=== PATIENT | male | born 1945 | race African-American/Black ===

== ENCOUNTER 2021-06-09 08:37 | Inpatient (IN) | payer OTHER, SELFPAY ==
[2021-06-09] VITALS (24 sets, daily range): BP systolic 124–165; BP diastolic 50–102; PULSE 70–108; RESP 13–26; TEMP 36.2–37.1; O2SAT 94–100; BMI 19.2
--- NOTE | ~2021-06-09 | CT_ITS ---
EXAMINATION: CTA chest PE protocol DATE: 06/09/2021 12:06 INDICATION: Hypoxia TECHNIQUE: Computed tomography angiography (CTA) of the chest was performed with 100 mL Omnipaque-350 intravenous contrast timed to evaluate the pulmonary arteries. Coronal maximum intensity projection 3D-reconstructions were created by the technologist. Automated exposure control and iterative reconst ruction technique were employed. Exam dose: 159.01 mGy-cm total exam DLP. COMPARISON: 06/09/2021 portable AP chest FINDINGS: There is diagnostic contrast enhancement of the pulmonary arteries and no evidence of pulmo nary embolism. There is thoracic aortic ectasia but no thoracic aortic dissection. No hilar or mediastinal mass lesion or lymphadenopathy. There are bilateral mild pleural effusions. Prominent emphysematous changes of the lungs are noted. There is mild bilateral dependent upper and l ower and middle lobe atelectasis There are old healed bilateral rib fractures. No suspicious osteolytic or osteoblastic lesions. IMPRESSION: No evidence of pulmonary embolism Prominent emphysematous changes Mild bilateral pleural effusions Reviewed, dictated and finalized at [facility]. Reviewed, dictated and finalized at location A. AND SPICE SUPERVISOR
--- NOTE | ~2021-06-09 | XR_ITS ---
EXAMINATION: XR chest 1V portable DATE: 06/09/2021 09:26 INDICATION: Shortness of breath. TECHNIQUE: A single frontal view of the chest was obtained. COMPARISON: None. FINDINGS: Clarke B-lines are noted, consistent with mild pulmonary edema. There is mild atelectasis a t the lung bases. No pleural effusion or pneumothorax. The heart size is normal. An electronic implan t overlies left chest. IMPRESSION: 1. Mild pulmonary edema. 2. Mild atelectasis at the lung bases. Reviewed, dictated and finalized at location A. CENTER DISPATCHER
--- NOTE | ~2021-06-09 | XR_ITS ---
EXAMINATION: XR barium swallow modified EXAM DATE: 06/22/2021 14:23 INDICATION: dysphagia TECHNIQUE: Modified barium esophagram was performed by speech pathologist with radiologist Dr. Joaquin Nicholas present to administered fluoroscopy. Speech pathologist administered barium in varying consis tencies as per speech pathologist documentation. This was recorded on tape. There was total fluorosc opic time of 3.5 minutes The DAP for this procedure was 2.4 Gycm2. A total of 2 images sent to PAC S from the exam. FINDINGS: Oral stage: Delayed swallow. Pharyngeal phase: Large sinus residual. Laryngeal penetration: Demonstrated. Aspiration: Demonstrated. Laryngeal sensitivity: Absent. IMPRESSION: Aspiration demonstrated; Please refer to speech pathologist findings and specific feedi ng recommendations. Reviewed, dictated and finalized at location A. RENTAL SERVICE ATTENDANT IMPRESSION: Aspiration demonstrated; Please refer to speech pathologist findi ngs and specific feeding recommendations.
--- NOTE | ~2021-06-09 | XR_ITS ---
EXAMINATION: XR chest 1V portable EXAM DATE: 06/21/2021 10:25 INDICATION: Hypoxia, difficulty breathing. TECHNIQUE: Portable AP frontal chest x-ray was obtained. Comparison is made to prior examination from 06/09/2021. FINDINGS: Cardiac monitoring device. The lungs are hyperinflated which can be seen with chronic obstr uctive pulmonary disease (a clinical diagnosis of functional impairment), but is not diagnostic of it . Small bilateral pleural effusions. No acute airspace disease or pneumothorax. Cardiomediastinal danuta houette is normal. Mild thoracic spondylosis. IMPRESSION: 1. Hyperinflation. 2. Small pleural effusions. Reviewed, dictated and finalized at location A. MAKER
--- NOTE | 2021-06-09 08:45 | ECG_ITS ---
Measurements Intervals [place] Rate: 97 P: [place]: 0 QRS: 71 QRSD: 84 T: 82 QT: 337 QTc: 430 Interpretive Statements SINUS RHYTHM FREQUENT ATRIAL PREMATURE COMPLEXES DELAYED PRECORDIAL R/S TRANSITION BASELINE ARTIFACT- I, II, III, AVR, AVL, AVF, V1-V6 ABNORMAL ECG Electronically Signed On 06-09-2021 10:27:00 ENTRY LEVEL CHEMIST by Navdeep David D.O.
[2021-06-09 09:42] LABS: Alveolar/Arterial O2 Gradient 160.8 mmHg; Base Excess ABG 7.8 mEq/l (+/-2.0); Fractional Inspired Oxygen 100 %; HCO3 ABG 35.3 mEq/l (22.0-26.0); Oxygen Content ABG 14.7 %vol (16.0-22.0); Oxygen Saturation ABG 99.8 % (95.0-100.0); Oxyhemoglobin 98.9 % THb (90.0-100.0); PO2 ABG 483.3 mmHg (80.0-100.0); PO2 FiO2 Ratio Arterial Blood 4.83 %; Total Hemoglobin 9.6 g/dL (12.0-18.0); pH ABG 7.328 (7.350-7.450)
[2021-06-09 09:44] LABS: Device CPAP; Modified Allen's Test Pass; PCO2 ABG 68.9 mmHg (35.0-45.0); Site Drawn RIGHT RADIAL
[2021-06-09 09:45] LABS: CPAP 5 cmH2O
--- NOTE | 2021-06-09 10:02 | PC.NURSE ---
Multiple RNs attempted to begin IV access. Unsuccessful at this time. SOPHIE Gibson called for IV ultrasound placement.
[2021-06-09 10:31] LABS: Basophils Absolute Auto 0.1 K/mm3 (0.0-0.1); Basophils Percent Auto 0.5 % (0.2-1.2); Eosinophils Absolute Auto 0.1 K/mm3 (0-0.3); Eosinophils Percent Auto 0.5 % (0-4.4); Hematocrit 29.2 % (42.0-52.0); Hemoglobin 8.6 g/dL (14.0-18.0); Immature Granulocyte Absolute 0.27 K/mm3 (0.00-0.031); Immature Granulocyte Percent A 2.4 % (0-0.5); Lymphocytes Absolute Auto 1.11 K/mm3 (0.9-3.2); Lymphocytes Percent Auto 10.1 % (18.3-44.2); Mean Corpuscular HGB Conc 29.5 g/dl (32-36); Mean Corpuscular Hemoglobin 27.4 pg (26-34); Mean Platelet Volume 9.4 fl (7.4-10.4); Monocytes Absolute Auto 0.8 K/mm3 (0.1-0.6); Monocytes Percent Auto 7.5 % (2.6-8.5); Neutrophils Absolute Auto 8.7 K/mm3 (1.3-6.7); Platelet Count Result 373 k/mm3 (150-375); Red Blood Count 3.14 M/mm3 (4.6-6.20); Red Cell Distribution Width 17.7 % (11.5-14.5)
[2021-06-09 10:43] LABS: Alanine Aminotransferase 30 U/L (4-50); Albumin Level 3.2 g/dL (3.5-5.1); Alkaline Phosphatase 62 U/L (38-126); Aspartate Amino Transferase 45 U/L (17-59); Bilirubin,Total 0.5 mg/dL (0.2-1.3); Blood Urea Nitrogen 14 mg/dL (9-20); Calcium 8.8 mg/dL (8.4-10.2); Carbon Dioxide > 40 mmol/L (22-30); Chloride 99 mmol/L (98-107); Estimated Glomerular Filt Rate > 60; Glucose 95 mg/dL (65-110); Sodium 139 mmol/L (137-145)
[2021-06-09 10:50] LABS: Prothrombin Time 12.8 Seconds (11.1-14.7)
[2021-06-09 10:51] LABS: NT Pro B Type Natriuretic Pept 885 pg/mL (5-100); Partial Thromboplastin Time 29.6 SECONDS (22.3-36.8)
[2021-06-09 11:05] LABS: Anisocytosis 1+ (NORMAL); Hypochromasia 1+ (NORMAL); Platelet Estimate Adequate (Adequate)
[2021-06-09] MEDS: methylPREDNISolone SOD SUCC 125 MG VIAL IV PUSH (11:12)
[2021-06-09] MEDS: ALBUTEROL SULFATE NEB 2.5 MG/0.5 ML INH 5 MG INHALATION (11:13)
[2021-06-09] MEDS: IPRATROPIUM BR 0.02% INH SOLN 0.5 MG/2.5 ML VIAL INHALATION ×2 (11:14→20:35)
--- NOTE | 2021-06-09 11:33 | ED.SOB ---
HPI - SOB/Dyspnea General Chief Complaint: Shortness of Breath/Dyspnea Stated Complaint: diff breathing Time Seen by Provider: 06/09/21 08:38 History of Present Illness HPI Narrative: Patient is a 75-year-old male who presents ER with shortness of breath. Patient was discharged yesterday from [facility] where he was being treated for CVA. Patient denies any residual symptoms. Patient found to be hypoxic on his home O2 at the senior care setting 60% on 2 L. EMS placed him on 6 L and his oxygen saturation only slightly raised. He was placed on BiPAP in the ED. He reports he is feeling markedly improved. Patient reports history of CHF as well as COPD. Denies chest pain or chest pressure. Has difficulty giving a history given the fact that he is on BiPAP. Related Data Home Medications Medication Instructions Recorded Confirmed albuterol sulfate [Ventolin] 2.5 mg INHALATION Q4H PRN 06/09/21 06/09/21 aspirin 81 mg PO DAILY 06/09/21 06/09/21 clopidogrel 75 mg PO DAILY 06/09/21 06/09/21 diltiazem HCl 240 mg PO DAILY 06/09/21 06/09/21 famotidine 20 mg PO BID 06/09/21 06/09/21 ferrous sulfate 325 mg PO DAILY 06/09/21 06/09/21 gabapentin 300 mg PO HS 06/09/21 06/09/21 lisinopril 5 mg PO DAILY 06/09/21 06/09/21 megestrol 40 mg PO DAILY 06/09/21 06/09/21 ropinirole [Requip] 0.5 mg PO HS 06/09/21 06/09/21 tiotropium bromide [Spiriva with 1 cap INHALATION DAILY 06/09/21 06/09/21 HandiHaler] Allergies Allergy/AdvReac Type Severity Reaction Status Date / Time No Known Allergies Allergy Verified 06/09/21 11:09 Review of Systems Review of Systems: All systems reviewed & are unremarkable except as noted in HPI and below Constitutional: Constitutional: Denies chills, Denies fever(s) and Denies weakness Cardiovascular: Cardiovascular: Denies chest pain, Denies rapid heart rate and Denies radiating jaw, neck or arm pain Respiratory: Respiratory: Denies cough, Reports dyspnea and Denies wheezing Gastrointestinal: Gastrointestinal: Denies abdominal pain, Denies nausea and Denies vomiting PMFSH Past Medical History Medical History (Updated 06/09/21 @ 19:05 by Ruddy Washington MD) Alcoholism Anemia Cataract COPD (chronic obstructive pulmonary disease) History of CVA (cerebrovascular accident) HTN (hypertension) with goal to be determined Hx SBO Malnutrition Mild acid reflux Neuropathy Restless leg syndrome Surgical History Surgical History H/O kidney removal History of loop recorder Family History Family History Father AA (alcohol abuse) Social History Social History (Updated 06/09/21 @ 16:19 by Sravani Linares NP) Social History: . He has 4 children. no poa. unemployed . stated that he still smokes at the [facility]. He drANK alcohol heavily 15-20 years ago and quit then. Code status full code Alcohol intake: former Substance use: never Living arrangements: senior care Sexual Orientation (if Verbalized by the Patient): Straight or Heterosexual Spiritual care concerns: No Exam Narrative: GENERAL: Chronically ill-appearing, thin, and in no acute distress. HEAD: Normocephalic, atraumatic. EYES: PERRL and EOMI. ENT: Mucous membranes moist. CHEST: Diminished throughout, comfortable on BiPAP. HEART: Regular rate and rhythm. Normal peripheral pulses. ABDOMEN: Soft, nontender, nondistended. EXTREMITIES: Normal range of motion. No edema. SKIN: Warm, dry, no rash. NEURO: Alert and oriented x3. PSYCH: Normal mood and affect. Course Course Emergency Course: Admit to hospitalist service. Will go to IMU. Will rule out PE with CTA. Vital Signs Vital signs: Vital Signs Temperature 97.1 F L 06/09/21 08:38 Pulse Rate 108 H 06/09/21 08:38 Respiratory Rate 26 H 06/09/21 08:38 Blood Pressure 165/94 H 06/09/21 08:38 Pulse Oximetry 97 11
[2021-06-09] MEDS: FUROSEMIDE INJ 40 MG/4 ML VIAL 20 MG IV PUSH (12:30)
--- NOTE | 2021-06-09 13:45 | ADMGEN ---
This patient, Andres East, was admitted to IMU Room 210-01. Patient/family oriented to hospital policies and general routines including ID bracelet, bed and alarms, visiting hours, pain management, procedures, bathroom and other care routines, personal items, smoking policy, room service/diet, and visiting hours. Information on how to activate the Rapid Response Team has been discussed. Patient/Family are encouraged to report perceived risks to care and to ask questions if they do not understand what they are told or what they should do.
--- NOTE | 2021-06-09 15:43 | PM.IMHP ---
H&P: HPI History of Present Illness Date/Time: 06/09/21 15:43 this is a 75-year-old male patient who is currently in the rehab facility a [facility]. The patient has a history of COPD as well as dementia. The patient is unable to give me any information. I spoke with his significant other Jessica salas who explained that she was not fully aware of all of his medical history and referred me to his daughter Sarah thompson Elvis it was able to answer some of my questions. Sarah thompson stated that the patient had become short of breath today and therefore was sent to the emergency room. Is not known how many days the patient has felt short of breath. The patient is currently on a BiPAP machine. White count 11.0. H&H is 8.6 and 29.2. However this anemia appears to be chronic per his daughter. The patient's daughter stated he has had a blood transfusion in the past. Initially patient's ABGs pH was 7.328, CO2 68.9, PO2 was 483.3, and bicarb 35.3. When the patient was admitted to IMU we started him on a BiPAP 06/26 and redo his ABGs. His pH is 7.363, pCO2 66.4, PO2 was 177.6. The patient is more awake and asking to eat. The patient is angry at this time because he was unaware that he was in hospital until who is admitted to IMU. Chest x-ray read per radiology as mild pulmonary edema, mild atelectasis at the lung bases. CTA was read as no evidence of pulmonary embolism. The patient was given a total nebulizer treatment, Solu-Medrol on IV Lasix in the emergency room. The patient is being admitted to inpatient services on 06/09/2021. Chief Complaint: Shortness of breath Review of Systems Review of Systems: All systems reviewed & are unremarkable except as noted in HPI and below Constitutional: Constitutional: Reports as per HPI and Reports no additional constitutional complaints Eyes: Eyes: Reports as per HPI and Reports no additional eye complaints ENT: Reports system reviewed and no additional complaints, except as documented and Reports Normal hearing present Cardiovascular: Cardiovascular: Reports no additional cardiovascular complaints Respiratory: Respiratory: Reports no additional respiratory complaints and Reports no additional respiratory complaints Gastrointestinal: Gastrointestinal: Reports as per HPI and Reports no additional gastrointestinal complaints Musculoskeletal: Musculoskeletal: Reports no additional musculoskeletal complaints Integumentary/Breasts: Skin/Breast: Reports system reviewed and no additional complaints, except as docu and Reports as per HPI Neurologic: Reports system reviewed and no additional complaints, except as documented, Reports as per HPI and Reports Normal hearing present Psychiatric: Psychiatric: Reports no additional psychiatric complaints and Reports as per HPI Endocrine: Endocrine: Reports no additional endocrine complaints Hematologic/Lymphatic: Hematologic/Lymphatic: Reports no additional hematologic/lymphatic complaints Allergic/Immunologic: Allergic/Immunologic: Reports no additional allergic/immunologic complaints PMFSH Past Medical History Medical History (Updated 06/09/21 @ 16:50 by Sravani Linares NP) Alcoholism Anemia Cataract COPD (chronic obstructive pulmonary disease) History of CVA (cerebrovascular accident) HTN (hypertension) with goal to be determined Hx SBO Malnutrition Mild acid reflux Neuropathy Restless leg syndrome Surgical History Surgical History H/O kidney removal History of loop recorder Family History Family History Father AA (alcohol abuse) Social History Social History (Updated 06/09/21 @ 16:19 by Sravani Linares NP) Social History: . He has 4 children. no poa. unemployed . stated that he still smokes at the [facility]. He drANK alcohol heavily 15-20 years ago and quit then. Co
[2021-06-09 15:45] LABS: Alveolar/Arterial O2 Gradient 286.6 mmHg; Base Excess ABG 9.7 mEq/l (+/-2.0); Fractional Inspired Oxygen 75 %; HCO3 ABG 36.9 mEq/l (22.0-26.0); Oxygen Content ABG 14.3 %vol (16.0-22.0); Oxygen Saturation ABG 99.1 % (95.0-100.0); Oxyhemoglobin 97.8 % THb (90.0-100.0); PO2 ABG 177.6 mmHg (80.0-100.0); PO2 FiO2 Ratio Arterial Blood 2.37 %; Total Hemoglobin 10.1 g/dL (12.0-18.0); pH ABG 7.363 (7.350-7.450)
[2021-06-09 15:49] LABS: Device BIPAP; Expiratory Pressure 6 cmH2O; Inspiratory Pressure 12 cmH2O; Modified Allen's Test Pass; PCO2 ABG 66.4 mmHg (35.0-45.0); Site Drawn RIGHT RADIAL
[2021-06-09] MEDS: methylPREDNISolone SOD SUCC 125 MG VIAL 60 MG IV PUSH (19:03)
[2021-06-09] MEDS: GABAPENTIN 300 MG CAPSULE PO (20:56)
[2021-06-09] MEDS: FAMOTIDINE 20 MG TABLET PO (20:56)
[2021-06-09] MEDS: rOPINIRole HCL 0.5 MG TABLET PO (20:56)
[2021-06-10] VITALS (27 sets, daily range): BP systolic 85–140; BP diastolic 53–99; PULSE 64–154; RESP 18–32; TEMP 36–37.1; O2SAT 92–100
[2021-06-10] MEDS: methylPREDNISolone SOD SUCC 125 MG VIAL 60 MG IV PUSH ×5 (00:01→23:04)
[2021-06-10] MEDS: IPRATROPIUM BR 0.02% INH SOLN 0.5 MG/2.5 ML VIAL INHALATION ×4 (03:08→17:28)
[2021-06-10 06:04] LABS: Basophils Percent Auto 0.1 % (0.2-1.2); Hematocrit 29.8 % (42.0-52.0); Hemoglobin 8.9 g/dL (14.0-18.0); Immature Granulocyte Absolute 0.13 K/mm3 (0.00-0.031); Immature Granulocyte Percent A 1.3 % (0-0.5); Lymphocytes Percent Auto 4.9 % (18.3-44.2); Mean Corpuscular HGB Conc 29.9 g/dl (32-36); Mean Corpuscular Volume 90.3 fl (80-100); Mean Platelet Volume 9.5 fl (7.4-10.4); Monocytes Absolute Auto 0.2 K/mm3 (0.1-0.6); Monocytes Percent Auto 1.9 % (2.6-8.5); Neutrophils Absolute Auto 9.3 K/mm3 (1.3-6.7); Neutrophils Percent Auto 91.8 % (45.5-73.1); Platelet Count Result 349 k/mm3 (150-375); Red Cell Distribution Width 17.1 % (11.5-14.5); White Blood Count 10.1 K/mm3 (4.5-10.0)
[2021-06-10 06:14] LABS: Alanine Aminotransferase 30 U/L (4-50); Albumin Level 3.3 g/dL (3.5-5.1); Alkaline Phosphatase 70 U/L (38-126); Anion Gap 2 mmol/L (8-16); Aspartate Amino Transferase 27 U/L (17-59); Bilirubin,Total 0.4 mg/dL (0.2-1.3); Blood Urea Nitrogen 18 mg/dL (9-20); Carbon Dioxide 37 mmol/L (22-30); Chloride 95 mmol/L (98-107); Estimated CRCL calculation 43 ml/min; Estimated Glomerular Filt Rate > 60; Glucose 156 mg/dL (65-110); Lactate Dehydrogenase 569 U/L (313-618); Magnesium 1.9 mg/dL (1.6-2.3); Potassium 4.2 mmol/L (3.4-5.0); Sodium 134 mmol/L (137-145)
[2021-06-10 06:16] LABS: Lactic Acid Reflex 0.9 mmol/L (0.7-2.1)
[2021-06-10 06:45] LABS: Thyroid Stimulating Hormone Reflex 0.225 uIU/mL (0.465-4.68)
[2021-06-10] MEDS: FERROUS SULFATE 324 MG TABLET PO (08:56)
[2021-06-10] MEDS: FAMOTIDINE 20 MG TABLET PO ×2 (08:56→20:26)
[2021-06-10] MEDS: ASPIRIN 81 MG CHEWABLE TABLET PO (08:56)
[2021-06-10] MEDS: CLOPIDOGREL BISULFATE 75 MG TABLET PO (08:56)
[2021-06-10] MEDS: lisinopriL 5 MG TABLET PO (08:56)
[2021-06-10] MEDS: MEGESTROL ACETATE (*CHEMO) ORAL SUSP 40 MG/ML SYR 400 MG PO (08:56)
--- NOTE | 2021-06-10 09:01 | PM.IMPN ---
Progress Note: A&P Assessment and Plan (1) COPD (chronic obstructive pulmonary disease): Code(s): J44.9 - Chronic obstructive pulmonary disease, unspecified Status: Chronic Assessment and Plan: Continue with Solu-Medrol and DuoNebs. Patient has hypercapnia and currently on a BiPAP. His pH has been corrected. The patient is requesting to get off the BiPAP in eat. I would like him to stay on the BiPAP a little bit longer to get the CO2 down. Later on tonight we can try to take him off for a few minutes Sarika on Diederich but then will need to go back on. I am not sure why the patient is not on Singulair. (2) Neuropathy: Code(s): G62.9 - Polyneuropathy, unspecified Status: Chronic Assessment and Plan: Continue with gabapentin. (3) Restless leg syndrome: Code(s): G25.81 - Restless legs syndrome Status: Chronic Assessment and Plan: Continue with ropinirole (4) Mild acid reflux: Code(s): K21.9 - Gastro-esophageal reflux disease without esophagitis Status: Chronic Assessment and Plan: Continue with Pepcid (5) Malnutrition: Code(s): E46 - Unspecified protein-calorie malnutrition Status: Chronic Assessment and Plan: The patient is only 54.1 kg. The patient had been on Megace. (6) HTN (hypertension) with goal to be determined: Code(s): I10 - Essential (primary) hypertension Status: Chronic Assessment and Plan: Continue with Cardizem 240 mg PO daily. Give IV Lopressor 2.5 mg every 6 hours as needed for tachycardia more than 115. Follow-up magnesium, potassium troponin levels. EKG ordered start. Previous EKG showed sinus rhythm. Labs from this morning reviewed. Electrolytes were within normal range. Patient had a loop recorder placed in the past. Will consult Cardiology to help with his management. (7) Anemia: Code(s): D64.9 - Anemia, unspecified Status: Acute Assessment and Plan: Anemia is moderate and appears to be well tolerated. Normochromic normocytic anemia. Hope 10 Stefano on ferritin TIBC morning labs. Apparently this is chronic and he has had blood transfusions in the past according to his daughter. Continue to monitor. The patient does not have any active bleeding. (8) Atrial tachycardia: Code(s): I47.1 - Supraventricular tachycardia Status: Acute Assessment and Plan: Restart cardiac catheterization technician. Obtain EKG, troponin, potassium med medium level. TSH noted to be over suppressed. T4 level spent. Patient given IV Lasix turn on home IV Q 6 RPR for tachycardia >115. Continue BiPAP. Obtain ABG. Additional Plan History of CVA with some right-sided residual continue with aspirin and Plavix. The patient had a loop recorder and I suspect that he has had some arrhythmias in the past and he is on Cardizem. Subjective Date/time seen: 06/10/21 09:01 S: patient was examined at the bedside. He was awake, generally weak but alert oriented to self and denies any complaints during my examination this morning. Upon reexamination at 6:30 p.m. after RN called report that patient was hypoxic on room air down to 86%. Patient started on BiPAP with improvement of his saturation to 99%. He was tachycardic in the 150s. Restart cardiac monitoring. Stat troponin EKG magnesium potassium ordered. Patient given a single dose of IV Lasix 20 mg and Lopressor 2.5 IV q.6 p.r.n. for tachycardia more than 115. Review of Systems Review of Systems: All systems reviewed & are unremarkable except as noted in HPI and below Constitutional: Constitutional: Reports as per HPI and Reports no additional constitutional complaints Eyes: Eyes: Reports as per HPI and Reports no additional eye complaints ENT: Reports system reviewed and no additional complaints, except as documented and Reports Normal hearing present Cardiovascular: Cardiovascular: Reports no additional cardiovascular complaints Respirator
--- NOTE | 2021-06-10 15:25 | PC.NURSE ---
This patient, Andres East, was transferred to [facility] on 06/10/21 at 1523. Personal belongings sent with patient. Report given to Rosanna BARRIOS. Appropriate documentation sent with patient.
--- NOTE | 2021-06-10 15:35 | PC.NURSE ---
This patient, Andres East, was received from IMU on 06/10/21 at 1535. Patient/family oriented to unit policies and routines. Received report from SOPHIE Campbell.
--- NOTE | 2021-06-10 19:16 | ECG_ITS ---
Measurements Intervals [place] Rate: 147 P: [place]: 0 QRS: 71 QRSD: 88 T: 68 QT: 274 QTc: 429 Interpretive Statements SUPRAVENTRICULAR TACHYCARDIA DELAYED PRECORDIAL R/S TRANSITION VOLTAGE CRITERIA FOR LVH BORDERLINE T WAVE ABNORMALITY- HIGH LATERAL LEADS BASELINE ARTIFACT- I, AVR, AVL ABNORMAL ECG Electronically Signed On 06-10-2021 20:02:51 ONCOLOGY PHYSICIAN by Navdeep David D.O.
[2021-06-10 19:29] LABS: Anion Gap 5 mmol/L (8-16); Blood Urea Nitrogen 28 mg/dL (9-20); Calcium 9.2 mg/dL (8.4-10.2); Carbon Dioxide 37 mmol/L (22-30); Chloride 92 mmol/L (98-107); Estimated CRCL calculation 29 ml/min; Estimated Glomerular Filt Rate 55; Glucose 201 mg/dL (65-110); Potassium 3.8 mmol/L (3.4-5.0); Sodium 134 mmol/L (137-145)
[2021-06-10 19:41] LABS: Troponin I 0.015 ng/mL (0.000-0.034)
[2021-06-10 19:48] LABS: Alveolar/Arterial O2 Gradient 156.6 mmHg; Base Excess ABG 9.7 mEq/l (+/-2.0); Fractional Inspired Oxygen 55 %; HCO3 ABG 37.1 mEq/l (22.0-26.0); Oxygen Content ABG 15.7 %vol (16.0-22.0); Oxygen Saturation ABG 98.9 % (95.0-100.0); Oxyhemoglobin 97.8 % THb (90.0-100.0); PO2 ABG 161.2 mmHg (80.0-100.0); PO2 FiO2 Ratio Arterial Blood 2.93 %; Total Hemoglobin 11.2 g/dL (12.0-18.0); pH ABG 7.363 (7.350-7.450)
[2021-06-10 19:49] LABS: PCO2 ABG 66.8 mmHg (35.0-45.0)
[2021-06-10 19:50] LABS: Device NON-INVASIVE VENT; Modified Allen's Test Pass; Site Drawn LEFT RADIAL
[2021-06-10 19:51] LABS: Non-Invasive Expiratory Pressure 6 CMH2O; Non-Invasive Inspiratory Pressure 12 CMH2O; Non-Invasive Vent Rate 18 /MIN
--- NOTE | 2021-06-10 19:52 | PC.NURSE ---
This patient, Andres East, was transferred to [IMU [id number] ] on 06/10/21 at 1952. Personal belongings sent with patient. Report given to [Britt BARRIOS ]. Appropriate documentation sent with patient.
[2021-06-10] MEDS: rOPINIRole HCL 0.5 MG TABLET PO (20:26)
[2021-06-10] MEDS: GABAPENTIN 300 MG CAPSULE PO (20:26)
[2021-06-10] MEDS: METOPROLOL TARTRATE INJ 5 MG/5 ML VIAL 2.5 MG IV PUSH (22:20)
--- NOTE | 2021-06-10 22:29 | ECG_ITS ---
Measurements Intervals [place] Rate: 67 P: 269 CO: 105 QRS: 83 QRSD: 85 T: 76 QT: 382 QTc: 404 Interpretive Statements ECTOPIC ATRIAL RHYTHM VENTRICULAR PREMATURE COMPLEX DELAYED PRECORDIAL R/S TRANSITION ST ELEVATION IN ANT/INF LEADS- PROBABLY EARLY REPOLARIZATION ABNORMALITY BASELINE WANDER- V6 ABNORMAL ECG Electronically Signed On 06-11-2021 17:23:20 PAINT SPRAY TENDER by Navdeep David D.O.
[2021-06-11] VITALS (23 sets, daily range): BP systolic 115–154; BP diastolic 43–67; PULSE 60–120; RESP 16–21; TEMP 36.1–36.9; O2SAT 94–100
[2021-06-11] MEDS: ENOXAPARIN 60 MG/0.6 ML SYRINGE 54 MG SUB-Q (00:02)
[2021-06-11] MEDS: IPRATROPIUM BR 0.02% INH SOLN 0.5 MG/2.5 ML VIAL INHALATION ×4 (02:47→19:48)
[2021-06-11] MEDS: OLANZapine 10 MG INJ VIAL 2.5 MG IM (04:18)
[2021-06-11] MEDS: WATER, STERILE FOR INJECTION 10 ML VIAL XX ×2 (04:18→06:00)
[2021-06-11] MEDS: OLANZapine 10 MG INJ VIAL 5 MG IM (06:00)
[2021-06-11 10:32] LABS: Basophils Percent Auto 0.1 % (0.2-1.2); Hematocrit 28.8 % (42.0-52.0); Hemoglobin 8.6 g/dL (14.0-18.0); Immature Granulocyte Absolute 0.12 K/mm3 (0.00-0.031); Immature Granulocyte Percent A 0.7 % (0-0.5); Lymphocytes Absolute Auto 0.39 K/mm3 (0.9-3.2); Lymphocytes Percent Auto 2.2 % (18.3-44.2); Mean Corpuscular HGB Conc 29.9 g/dl (32-36); Mean Corpuscular Hemoglobin 27.2 pg (26-34); Mean Corpuscular Volume 91.1 fl (80-100); Mean Platelet Volume 9.3 fl (7.4-10.4); Monocytes Absolute Auto 0.4 K/mm3 (0.1-0.6); Monocytes Percent Auto 2.4 % (2.6-8.5); Neutrophils Absolute Auto 17.1 K/mm3 (1.3-6.7); Neutrophils Percent Auto 94.6 % (45.5-73.1); Platelet Count Result 378 k/mm3 (150-375); Red Blood Count 3.16 M/mm3 (4.6-6.20); Red Cell Distribution Width 17.1 % (11.5-14.5)
[2021-06-11 10:43] LABS: Anion Gap 3 mmol/L (8-16); Blood Urea Nitrogen 35 mg/dL (9-20); Calcium 9.4 mg/dL (8.4-10.2); Carbon Dioxide 39 mmol/L (22-30); Chloride 99 mmol/L (98-107); Estimated CRCL calculation 39 ml/min; Estimated Glomerular Filt Rate > 60; Glucose 154 mg/dL (65-110); Sodium 141 mmol/L (137-145)
--- NOTE | 2021-06-11 10:53 | PCPTNOTE ---
Patient presents in bed at this time. Patient reports he is in no pain however request therapy to come back later. States he is not ready.
[2021-06-11 10:55] LABS: Troponin I 0.015 ng/mL (0.000-0.034)
--- NOTE | 2021-06-11 11:11 | PM.CNCAR ---
Assessment and Plan Assessment and plan (1) Atrial tachycardia: Code(s): I47.1 - Supraventricular tachycardia Status: Acute Assessment and Plan: Brief, self-limiting episodes that are well tolerated. Workup performed at [place]. Echocardiogram recently performed as above. No further workup needed at this point. Continue diltiazem. (2) Malnutrition: Code(s): E46 - Unspecified protein-calorie malnutrition Status: Chronic (3) COPD (chronic obstructive pulmonary disease): Code(s): J44.9 - Chronic obstructive pulmonary disease, unspecified Status: Chronic Assessment and Plan: Per hospitalist (4) Essential hypertension: Code(s): I10 - Essential (primary) hypertension Status: Acute Assessment and Plan: At goal (5) Pulmonary hypertension: Code(s): I27.20 - Pulmonary hypertension, unspecified Status: Acute Assessment and Plan: Mild and likely related to underlying lung disease History of Present Illness History of Present Illness Consult date/time: 06/11/21 11:11 Requesting physician: Elle Rutledge MD Consult reason: Other (Atrial tachycardia) Reason For Visit: acute herpecapnic respiratory failure/chf/copd Narrative: Reason consultation atrial tachycardia Date of service 06/11/2021 Requesting provider: Dr. Rutledge History: Patient is a 75-year-old male has a history of SVT. He was recently at [facility] had an extensive workup performed there by Dr. Zambrano and Raheel. Echocardiogram also performed there which was unremarkable. Patient came to this hospital from a rehab facility because of shortness of breath. He has a history of COPD and dementia per chart review and record. He does deny any chest pain, syncope, presyncope, paroxysmal nocturnal dyspnea, orthopnea, edema or palpitations. He has been treated for a COPD exacerbation. 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 There are relatively short-lived and well tolerated. Review of Systems Review of Systems: All systems reviewed & are unremarkable except as noted in HPI and below Constitutional: Constitutional: Reports weakness Eyes: Eyes: Denies blurry vision ENT: Reports Normal hearing present Cardiovascular: Cardiovascular: Denies chest pain Respiratory: Respiratory: Reports dyspnea Gastrointestinal: Gastrointestinal: Denies abdominal pain Genitourinary: Genitourinary: Denies dysuria Musculoskeletal: Musculoskeletal: Denies neck pain Integumentary/Breasts: Skin/Breast: Denies dry skin Neurologic: Denies headache(s) Psychiatric: Psychiatric: Denies anxiety Endocrine: Endocrine: Denies fatigue Hematologic/Lymphatic: Hematologic/Lymphatic: Denies easy bleeding Allergic/Immunologic: Allergic/Immunologic: Denies GI upset with certain foods PMFSH Past Medical History Medical History (Updated 06/11/21 @ 11:17 by Golden Short MD) Alcoholism Anemia Cataract COPD (chronic obstructive pulmonary disease) History of CVA (cerebrovascular accident) HTN (hypertension) with goal to be determined Hx SBO Malnutrition Mild acid reflux Neuropathy Pulmonary hypertension Restless leg syndrome Surgical History Surgical History H/O kidney removal History of loop recorder Family History Family History Father AA (alcohol abuse) Social History Social History Social History: . He has 4 children. no poa. unemployed . [facility] He drANK alcohol heavily 15-20 years ago and quit then. Code status full code Alcohol intake: former Substance use: never Living arrangements: assisted Sexual Orientation (if Verbalized by the Patient): Straight or Heterosexual Spiritual care c
--- NOTE | 2021-06-11 11:30 | PC.NURSE ---
Notified dr. marin that patient is sleeping from meds given over night. verbal orders to hold am med and resume normal med times at 2100. Will continue to monitor patient per unit protocols.
--- NOTE | 2021-06-11 11:41 | PCOTNOTE ---
Attempted treatment x3 trials; patient sleeping soundly with blankets over head and did not arouse with light verbal and tactile stim.
[2021-06-11] MEDS: methylPREDNISolone SOD SUCC 125 MG VIAL 60 MG IV PUSH ×3 (12:48→23:00)
[2021-06-11 12:56] LABS: Iron 57 ug/dL (49-181)
[2021-06-11 13:07] LABS: Percent Iron Saturation 22 % (20-50)
[2021-06-11 13:16] LABS: Free T4 Free Thyroxine Reflex 1.17 ng/dL (0.78-2.19)
[2021-06-11 14:20] LABS: Total Triiodothyronine (T3) 0.66 NG/ML (0.97-1.69)
--- NOTE | 2021-06-11 17:49 | PM.IMPN ---
Progress Note: A&P Assessment and Plan (1) COPD (chronic obstructive pulmonary disease): Code(s): J44.9 - Chronic obstructive pulmonary disease, unspecified Status: Chronic Assessment and Plan: Continue with Solu-Medrol and DuoNebs. Patient has persistent hypercapnia despite being on a BiPAP. REpeat ABG.Continue BIPAP at night per home parameters. (2) Neuropathy: Code(s): G62.9 - Polyneuropathy, unspecified Status: Chronic Assessment and Plan: Continue with gabapentin. (3) Restless leg syndrome: Code(s): G25.81 - Restless legs syndrome Status: Chronic Assessment and Plan: Continue with ropinirole. Follow up iron panel. (4) Mild acid reflux: Code(s): K21.9 - Gastro-esophageal reflux disease without esophagitis Status: Chronic Assessment and Plan: Continue with Pepcid (5) Malnutrition: Code(s): E46 - Unspecified protein-calorie malnutrition Status: Chronic Assessment and Plan: The patient is only 54.1 kg. The patient had been on Megace. Perform a 3-day calorie count and check prealbumin levels. Encourage oral intake . Provide assistance with feeding. (6) HTN (hypertension) with goal to be determined: Code(s): I10 - Essential (primary) hypertension Status: Chronic Assessment and Plan: Continue with Cardizem 240 mg PO daily. Give IV Lopressor 2.5 mg every 6 hours as needed for tachycardia more than 115. Per Per cardiology note these episodes of brief and tolerated. No further workup is necessary. (7) Anemia: Code(s): D64.9 - Anemia, unspecified Status: Acute Assessment and Plan: Anemia is moderate and appears to be well tolerated. Normochromic normocytic anemia. Iron stores adequate. Apparently this is chronic and he has had blood transfusions in the past according to his daughter. Continue to monitor. The patient does not have any active bleeding. 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 Continue BiPAP. Obtain ABG. Additional Plan History of CVA with some right-sided residual continue with aspirin and Plavix. Subjective Date/time seen: 06/11/21 17:49 S: patient was examined at the bedside. He was agitated overnight and was medicated with Zyprexa and Haldol. Today the patient is somnolent and not answering to my questions. He does not seem to be in any distress. Review of Systems Review of Systems: All systems reviewed & are unremarkable except as noted in HPI and below ROS unobtainable: Yes unobtainable due to mental status Constitutional: Constitutional: Reports as per HPI and Reports no additional constitutional complaints Eyes: Eyes: Reports as per HPI and Reports no additional eye complaints ENT: Reports system reviewed and no additional complaints, except as documented Cardiovascular: Cardiovascular: Reports no additional cardiovascular complaints Respiratory: Respiratory: Reports no additional respiratory complaints and Reports no additional respiratory complaints Gastrointestinal: Gastrointestinal: Reports as per HPI and Reports no additional gastrointestinal complaints Musculoskeletal: Musculoskeletal: Reports no additional musculoskeletal complaints Integumentary/Breasts: Skin/Breast: Reports system reviewed and no additional complaints, except as docu and Reports as per HPI Neurologic: Reports system reviewed and no additional complaints, except as documented, Reports as per HPI and Reports Normal hearing present Psychiatric: Psychiatric: Reports no additional psychiatric complaints, Reports as per HPI and Reports confusion Endocrine: Endocrine: Reports no additional endocrine complaints Hematologic/Lymphatic: Hematologic/Lymphatic: Reports no additional hematologic/lymphatic complaints Allergic/Immunologic: Allergic/Immunologic: Reports no ad
[2021-06-11] MEDS: METOPROLOL TARTRATE INJ 5 MG/5 ML VIAL 2.5 MG IV PUSH (18:58)
[2021-06-11 20:15] LABS: Alveolar/Arterial O2 Gradient 179.5 mmHg; Base Excess ABG 11.2 mEq/l (+/-2.0); Fractional Inspired Oxygen 50 %; HCO3 ABG 38.2 mEq/l (22.0-26.0); Oxygen Content ABG 12.4 %vol (16.0-22.0); Oxygen Saturation ABG 97.3 % (95.0-100.0); Oxyhemoglobin 95.6 % THb (90.0-100.0); PO2 ABG 101.3 mmHg (80.0-100.0); PO2 FiO2 Ratio Arterial Blood 2.03 %; Total Hemoglobin 9.1 g/dL (12.0-18.0); pH ABG 7.372 (7.350-7.450)
[2021-06-11 20:17] LABS: Device NON-INVASIVE VENT; Modified Allen's Test Pass; Non-Invasive Expiratory Pressure 6 CMH2O; Non-Invasive Inspiratory Pressure 12 CMH2O; Non-Invasive Vent Rate 18 /MIN; PCO2 ABG 67.3 mmHg (35.0-45.0); Site Drawn LEFT RADIAL
[2021-06-11] MEDS: FAMOTIDINE 20 MG TABLET PO (20:39)
[2021-06-11] MEDS: GABAPENTIN 300 MG CAPSULE PO (20:39)
[2021-06-11] MEDS: rOPINIRole HCL 0.5 MG TABLET PO (20:39)
[2021-06-12] VITALS (23 sets, daily range): BP systolic 138–157; BP diastolic 51–87; PULSE 61–106; RESP 18–30; TEMP 36.2–36.8; O2SAT 92–100; BMI 19.3
--- NOTE | 2021-06-12 00:21 | PC.NURSE ---
Pt starting to yell and become belligerent again. Ripped off bipap and asked for urinal. Pt allowed RN to replace bipap after he used urinal. Pt then wanted to get up to the chair. RN willing to get pt up to chair with alarm, but refused to agree to call when he wanted to get out of the chair. States, If I wanna get up, I'm gonna get up. Pt has hx of stroke and is a high fall risk. RN told pt that she would not get him up without that cooperation. Pt stated You don't know shit. RN left the room with pt still in bed with the bed alarm on zone 2.
[2021-06-12] MEDS: IPRATROPIUM BR 0.02% INH SOLN 0.5 MG/2.5 ML VIAL INHALATION ×3 (02:52→14:01)
[2021-06-12] MEDS: methylPREDNISolone SOD SUCC 125 MG VIAL 60 MG IV PUSH ×4 (06:11→23:42)
[2021-06-12 06:23] LABS: Basophils Percent Auto 0.1 % (0.2-1.2); Hemoglobin 10.6 g/dL (14.0-18.0); Immature Granulocyte Percent A 0.6 % (0-0.5); Lymphocytes Absolute Auto 0.16 K/mm3 (0.9-3.2); Mean Corpuscular HGB Conc 29.4 g/dl (32-36); Mean Corpuscular Hemoglobin 26.9 pg (26-34); Mean Corpuscular Volume 91.4 fl (80-100); Mean Platelet Volume 9.3 fl (7.4-10.4); Monocytes Absolute Auto 0.4 K/mm3 (0.1-0.6); Monocytes Percent Auto 2.8 % (2.6-8.5); Neutrophils Absolute Auto 14.9 K/mm3 (1.3-6.7); Neutrophils Percent Auto 95.5 % (45.5-73.1); Platelet Count Result 445 k/mm3 (150-375); Red Blood Count 3.94 M/mm3 (4.6-6.20); Red Cell Distribution Width 17.2 % (11.5-14.5); White Blood Count 15.7 K/mm3 (4.5-10.0)
[2021-06-12 06:34] LABS: Anion Gap 3 mmol/L (8-16); Blood Urea Nitrogen 33 mg/dL (9-20); Calcium 9.8 mg/dL (8.4-10.2); Carbon Dioxide 39 mmol/L (22-30); Chloride 96 mmol/L (98-107); Estimated CRCL calculation 39 ml/min; Estimated Glomerular Filt Rate > 60; Glucose 208 mg/dL (65-110); Potassium 4.5 mmol/L (3.4-5.0); Sodium 138 mmol/L (137-145)
[2021-06-12 09:06] LABS: Prealbumin 22.2 mg/dL (17.6-36.0)
[2021-06-12] MEDS: MEGESTROL ACETATE (*CHEMO) ORAL SUSP 40 MG/ML SYR 400 MG PO (10:11)
[2021-06-12] MEDS: CLOPIDOGREL BISULFATE 75 MG TABLET PO (10:11)
[2021-06-12] MEDS: FAMOTIDINE 20 MG TABLET PO (10:11)
[2021-06-12] MEDS: FERROUS SULFATE 324 MG TABLET PO (10:11)
[2021-06-12] MEDS: ASPIRIN 81 MG CHEWABLE TABLET PO (10:12)
[2021-06-12] MEDS: lisinopriL 5 MG TABLET PO (10:13)
[2021-06-12 10:39] LABS: Alveolar/Arterial O2 Gradient 45.5 mmHg; Base Excess ABG 10.1 mEq/l (+/-2.0); Fractional Inspired Oxygen 28 %; Oxygen Content ABG 12.7 %vol (16.0-22.0); Oxygen Saturation ABG 91.4 % (95.0-100.0); Oxyhemoglobin 91.1 % THb (90.0-100.0); PO2 ABG 67.6 mmHg (80.0-100.0); PO2 FiO2 Ratio Arterial Blood 2.41 %; Total Hemoglobin 9.9 g/dL (12.0-18.0); pH ABG 7.333 (7.350-7.450)
[2021-06-12 10:43] LABS: Device NASAL CANNULA; Modified Allen's Test Pass; PCO2 ABG 73.3 mmHg (35.0-45.0); Site Drawn LEFT RADIAL
--- NOTE | 2021-06-12 10:59 | PM.IMPN ---
Progress Note: A&P Assessment and Plan (1) COPD (chronic obstructive pulmonary disease): Code(s): J44.9 - Chronic obstructive pulmonary disease, unspecified Status: Chronic Assessment and Plan: Currently is not in any acute exacerbation. Patient appears to be a chronic CO2 retainer. ABG was reviewed. Continue with Solu-Medrol and DuoNebs. Patient has persistent hypercapnia despite being on a BiPAP. Continue BiPAP q.h.s. and p.r.n.. (2) Neuropathy: Code(s): G62.9 - Polyneuropathy, unspecified Status: Chronic Assessment and Plan: Continue with gabapentin. (3) Restless leg syndrome: Code(s): G25.81 - Restless legs syndrome Status: Chronic Assessment and Plan: Continue with ropinirole. Follow up iron panel. (4) Mild acid reflux: Code(s): K21.9 - Gastro-esophageal reflux disease without esophagitis Status: Chronic Assessment and Plan: Continue with Pepcid (5) Malnutrition: Code(s): E46 - Unspecified protein-calorie malnutrition Status: Chronic Assessment and Plan: The patient is only 54.1 kg. The patient had been on Megace. Perform a 3-day calorie count and check prealbumin levels. Encourage oral intake . Provide assistance with feeding. (6) HTN (hypertension) with goal to be determined: Code(s): I10 - Essential (primary) hypertension Status: Chronic Assessment and Plan: Continue with Cardizem 240 mg PO daily. Give IV Lopressor 2.5 mg every 6 hours as needed for tachycardia more than 115. Per Per cardiology note these episodes of brief and tolerated. No further workup is necessary. (7) Anemia: Code(s): D64.9 - Anemia, unspecified Status: Acute Assessment and Plan: Anemia is moderate and appears to be well tolerated. Normochromic normocytic anemia. Iron stores adequate. Apparently this is chronic and he has had blood transfusions in the past according to his daughter. Continue to monitor. The patient does not have any active bleeding. (8) Atrial tachycardia: Code(s): I47.1 - Supraventricular tachycardia Status: Acute Assessment and Plan: Supraventricular tachycardia. Patient has experience self limited episodes of SVT that are asymptomatic, related to delayed dose of diltiazem. Resume this diltiazem as scheduled when mentation allows. Consideration for increasing dose of diltiazem, SVT recurs and BP permits. Per Cardiology no further workup is needed at this point. Continue to monitor electrolyte and repeat as needed. Additional Plan History of CVA with some right-sided residual continue with aspirin and Plavix. Subjective Date/time seen: 06/12/21 09:00 S; patient was examined at the bedside. He is currently somnolent. Review of Systems Review of Systems: All systems reviewed & are unremarkable except as noted in HPI and below ROS unobtainable: Yes unobtainable due to mental status Constitutional: Constitutional: Reports as per HPI and Reports no additional constitutional complaints Eyes: Eyes: Reports as per HPI and Reports no additional eye complaints ENT: Reports system reviewed and no additional complaints, except as documented Cardiovascular: Cardiovascular: Reports no additional cardiovascular complaints Respiratory: Respiratory: Reports no additional respiratory complaints and Reports no additional respiratory complaints Gastrointestinal: Gastrointestinal: Reports as per HPI and Reports no additional gastrointestinal complaints Musculoskeletal: Musculoskeletal: Reports no additional musculoskeletal complaints Integumentary/Breasts: Skin/Breast: Reports system reviewed and no additional complaints, except as docu and Reports as per HPI Neurologic: Reports system reviewed and no additional complaints, except as documented, Reports as per HPI and Reports confusion Psychiatric: Psychiatric: Reports no additional psychiatric complaints, Reports as per
--- NOTE | 2021-06-12 11:05 | P.CDI_ITS ---
CDI Query Clarification Request 1) -Pt presented to ED with complaint of shortness of breath. Patient found to be hypoxic on [facility]2 [facility] 60% on 2 L. EMS placed him on 6 L and his oxygen saturation only slightly raised. He was placed on BiPAP in the ED -Pt on bipap 0838 06/09 to 0800 06/10 per documentation and intermittently after that - 06/09 ABG's: pH 7.328 pCO2 68.9 pO2 483 HCO3 35.3 O2 sats 99% on FiO2 per CPAP. 06/12 ABG's: pH 7.333 pCO2 7.3. pO2 67.6 HCO3 38 O2 sats 91% on O2 at 2L - Patient has persistent hypercapnia despite being on a BiPAP and Patient has hypercapnia and currently on a BiPAP. His pH has been corrected. documented -Per cardiology consultation, reason for visit: acute herpecapnic respiratory failure/chf/copd Please clarify respiratory status: * Acute respiratory failure * Chronic respiratory failure * Acute on chronic respiratory failure * Unable to determine 2) -COPD has been documented -Pt is on Solu Medrol 60mg IV q 6 hrs -06/12 progress note says Currently is not in any acute exacerbation If COPD was stable and not exacerbated on admission, please clarify cause for shortness of breath and need for bipap. <Emily Anna RN - Last Filed: 06/12/21 11:38> Acute on chronic respiratory failure <Elle Rutledge MD - Last Filed: 06/12/21 18:59>
--- NOTE | 2021-06-12 11:11 | PCDIET ---
Calorie count initiated. Nursing is aware. Will monitor for three days.
--- NOTE | 2021-06-12 11:39 | PCPTNOTE ---
Patient unable to be seen for PT today, per nursing patient was just put back on BiPap and to hold on therapy today. Will check back tomorrow.
--- NOTE | 2021-06-12 11:43 | PM.PNCARD ---
Progress Note: A&P Assessment and Plan (1) Atrial tachycardia: Code(s): I47.1 - Supraventricular tachycardia Status: Acute Assessment and Plan: Brief, self-limited SVT, asymptomatic on telemetry predominantly last night after missing his dose of Diltiazem 240mg yeterday until late due to confusion and combative behavior He had a previous workup performed at [facility] sees Dr Zambrano/Patricia as an outpatient. May given Diltiazem this afternoon and resume regimen tomorrow morning as scheduled unless bradycardic or hypotensive. Discussed with nursing. With regard to SVT, no further workup needed at this point. Continue Diltiazem at 240mg daily, may increase to 360mg daily if sig recurrent SVT as BP permits. No clear atrial fibrillation or atrial flutter on telemetry thus far. Monitor and replete electrolytes as appropriate. Will see patient on an as needed. Please do not hesitate to contact us with any additional questions or concerns. (2) Malnutrition: Code(s): E46 - Unspecified protein-calorie malnutrition Status: Chronic Assessment and Plan: Per primary service. Patient was previously on Megace. (3) COPD (chronic obstructive pulmonary disease): Code(s): J44.9 - Chronic obstructive pulmonary disease, unspecified Status: Chronic Assessment and Plan: Management Per hospitalist continue noninvasive positive pressure ventilation as required, bronchodilator therapy, methylprednisolone. (4) Essential hypertension: Code(s): I10 - Essential (primary) hypertension Status: Acute Assessment and Plan: Overall, fairly stable with some lability. Continue to monitor. (5) Pulmonary hypertension: Code(s): I27.20 - Pulmonary hypertension, unspecified Status: Acute Assessment and Plan: Mild in severity, most likely related to underlying lung disease. Subjective Date/time seen: Date of service: 06/12/21 11:43 Follow-up for PSVT Patient denies palpitations. Denies shortness of breath, chest pain. No new issues today. Wearing BiPAP. Apparently he was more confused and combative yesterday and missed his morning diltiazem. This was eventually given around 7:00 p.m. last night. He had episodes of SVT just prior to 7:00 p.m. last night and around 325 this a.m. but none subsequently. Patient states he feels better. Review of Systems Review of Systems: All systems reviewed & are unremarkable except as noted in HPI and below Constitutional: Constitutional: Reports as per HPI, Denies fatigue, Denies headache(s) and Reports weakness Eyes: Eyes: Reports as per HPI and Denies blurry vision ENT: Reports as per HPI, Reports Normal hearing present, Denies headache(s) and Denies neck pain Cardiovascular: Cardiovascular: Reports as per HPI, Denies chest pain, Denies palpitations and Reports dyspnea Respiratory: Respiratory: Reports as per HPI and Denies dyspnea Gastrointestinal: Gastrointestinal: Reports as per HPI and Denies abdominal pain Genitourinary: Genitourinary: Reports as per HPI and Denies dysuria Musculoskeletal: Musculoskeletal: Reports as per HPI and Denies neck pain Integumentary/Breasts: Skin/Breast: Reports as per HPI and Denies dry skin Neurologic: Reports as per HPI, Reports Normal hearing present, Denies headache(s) and Reports weakness Psychiatric: Psychiatric: Reports as per HPI and Denies anxiety Endocrine: Endocrine: Reports as per HPI and Denies fatigue Hematologic/Lymphatic: Hematologic/Lymphatic: Reports as per HPI and Denies easy bleeding Allergic/Immunologic: Allergic/Immunologic: Reports as per HPI and Denies GI upset with certain foods Exam Narrative: Somnolent but awakens. Appears stated age Const: General: comfortable and no acute distress HENMT: General nose exam: Normal nares present Eyes: Sclera: sclerae normal Neck: Neck: supple and no JVD Chest: Other: No reproducible chest wall pain to palp
--- NOTE | 2021-06-12 12:59 | PCOTNOTE ---
Attempted to see pt, unable to arouse. Per RN on second attempt, Pt back on BIPAP - advised not to see. Will continue plan of care tomorrow.
[2021-06-12] MEDS: LORazepam INJ (*CRX) 2 MG/ML VIAL 0.5 MG IV PUSH (13:41)
--- NOTE | 2021-06-12 14:03 | PCNSR ---
On 06/12/21, the student,Astrid Barbour, provided care and completed [facility] documentation on this patient. I have reviewed the student's documentation and agree with the findings.
[2021-06-12] MEDS: OLANZapine 10 MG INJ VIAL 5 MG IM (19:37)
[2021-06-12] MEDS: WATER, STERILE FOR INJECTION 10 ML VIAL XX (20:35)
[2021-06-12] MEDS: HALOPERIDOL LACTATE 5 MG/ML VIAL IM (21:06)
[2021-06-13] VITALS (24 sets, daily range): BP systolic 133–162; BP diastolic 51–74; PULSE 61–114; RESP 12–25; TEMP 36.5–37.1; O2SAT 93–100
[2021-06-13] MEDS: IPRATROPIUM BR 0.02% INH SOLN 0.5 MG/2.5 ML VIAL INHALATION ×3 (02:38→21:29)
[2021-06-13] MEDS: methylPREDNISolone SOD SUCC 125 MG VIAL 60 MG IV PUSH ×3 (05:45→17:15)
[2021-06-13 06:57] LABS: Basophils Percent Auto 0.1 % (0.2-1.2); Hematocrit 31.9 % (42.0-52.0); Hemoglobin 9.3 g/dL (14.0-18.0); Immature Granulocyte Absolute 0.09 K/mm3 (0.00-0.031); Immature Granulocyte Percent A 0.6 % (0-0.5); Lymphocytes Absolute Auto 0.25 K/mm3 (0.9-3.2); Lymphocytes Percent Auto 1.8 % (18.3-44.2); Mean Corpuscular HGB Conc 29.2 g/dl (32-36); Mean Corpuscular Hemoglobin 27.4 pg (26-34); Mean Corpuscular Volume 94.1 fl (80-100); Mean Platelet Volume 9.3 fl (7.4-10.4); Monocytes Absolute Auto 0.3 K/mm3 (0.1-0.6); Monocytes Percent Auto 2.2 % (2.6-8.5); Neutrophils Absolute Auto 13.2 K/mm3 (1.3-6.7); Neutrophils Percent Auto 95.3 % (45.5-73.1); Platelet Count Result 357 k/mm3 (150-375); Red Blood Count 3.39 M/mm3 (4.6-6.20); Red Cell Distribution Width 17.2 % (11.5-14.5); White Blood Count 13.9 K/mm3 (4.5-10.0)
[2021-06-13 07:41] LABS: Blood Urea Nitrogen 30 mg/dL (9-20); Calcium 9.9 mg/dL (8.4-10.2); Carbon Dioxide > 40 mmol/L (22-30); Chloride 97 mmol/L (98-107); Estimated CRCL calculation 33 ml/min; Estimated Glomerular Filt Rate > 60; Glucose 139 mg/dL (65-110); Potassium 4.6 mmol/L (3.4-5.0); Sodium 140 mmol/L (137-145)
[2021-06-13] MEDS: lisinopriL 5 MG TABLET PO (08:35)
[2021-06-13] MEDS: FAMOTIDINE 20 MG TABLET PO ×2 (08:35→20:32)
[2021-06-13] MEDS: ASPIRIN 81 MG CHEWABLE TABLET PO (08:35)
[2021-06-13] MEDS: CLOPIDOGREL BISULFATE 75 MG TABLET PO (08:35)
[2021-06-13] MEDS: FERROUS SULFATE 324 MG TABLET PO (08:36)
[2021-06-13] MEDS: HYDROcodone/acetaminophen (*CRX) 5-325 MG TABLET 1 TAB PO ×4 (08:36→21:25)
[2021-06-13] MEDS: MEGESTROL ACETATE (*CHEMO) ORAL SUSP 40 MG/ML SYR 400 MG PO (08:37)
--- NOTE | 2021-06-13 11:53 | PCOTNOTE ---
Attempted to see Patient 2 times this A.M. Per RN, Patient can not come off the BIPAPP and did not advise to be seen this A.M.
--- NOTE | 2021-06-13 18:51 | PM.IMPN ---
Progress Note: A&P Assessment and Plan (1) COPD (chronic obstructive pulmonary disease): Code(s): J44.9 - Chronic obstructive pulmonary disease, unspecified Status: Chronic Assessment and Plan: Currently is not in any acute exacerbation. Patient appears to be a chronic CO2 retainer. ABG was reviewed. Continue with Solu-Medrol and DuoNebs. Patient has persistent hypercapnia despite being on a BiPAP. Continue BiPAP q.h.s. and p.r.n.. (2) Neuropathy: Code(s): G62.9 - Polyneuropathy, unspecified Status: Chronic Assessment and Plan: Continue with gabapentin. (3) Restless leg syndrome: Code(s): G25.81 - Restless legs syndrome Status: Chronic Assessment and Plan: Continue with ropinirole. Iron stores are repleted. (4) Mild acid reflux: Code(s): K21.9 - Gastro-esophageal reflux disease without esophagitis Status: Chronic Assessment and Plan: Continue with Pepcid. (5) Malnutrition: Code(s): E46 - Unspecified protein-calorie malnutrition Status: Chronic Assessment and Plan: The patient is only 54.1 kg. The patient had been on Megace. Perform a 3-day calorie count and check prealbumin levels. Continue to encourage oral intake . Provide assistance with feeding. (6) HTN (hypertension) with goal to be determined: Code(s): I10 - Essential (primary) hypertension Status: Chronic Assessment and Plan: Continue with Cardizem 240 mg PO daily. Give IV Lopressor 2.5 mg every 6 hours as needed for tachycardia more than 115. Per cardiology note these episodes of brief and tolerated. No further workup is necessary. (7) Anemia: Code(s): D64.9 - Anemia, unspecified Status: Acute Assessment and Plan: Anemia is moderate and appears to be well tolerated. Hemoglobin stable at 9.3 today Normochromic normocytic anemia. Iron stores adequate. Apparently this is chronic and he has had blood transfusions in the past according to his daughter. Continue to monitor. The patient does not have any active bleeding. (8) Atrial tachycardia: Code(s): I47.1 - Supraventricular tachycardia Status: Acute Assessment and Plan: Supraventricular tachycardia. Patient has experience self limited episodes of SVT that are asymptomatic, related to delayed dose of diltiazem. Resume this diltiazem as scheduled when mentation allows. Consideration for increasing dose of diltiazem, SVT recurs and BP permits. Per Cardiology no further workup is needed at this point. Continue to monitor electrolyte and repeat as needed. Additional Plan History of CVA with some right-sided residual continue with aspirin and Plavix. Subjective Date/time seen: 06/13/21 18:52 S: Patient is examined at the bedside he is somnolent. He did not have any complaints. He did not seem to be in any distress. Review of Systems Review of Systems: All systems reviewed & are unremarkable except as noted in HPI and below ROS unobtainable: Yes unobtainable due to mental status Constitutional: Constitutional: Reports as per HPI and Reports no additional constitutional complaints Eyes: Eyes: Reports as per HPI and Reports no additional eye complaints ENT: Reports system reviewed and no additional complaints, except as documented Cardiovascular: Cardiovascular: Reports no additional cardiovascular complaints Respiratory: Respiratory: Reports no additional respiratory complaints and Reports no additional respiratory complaints Gastrointestinal: Gastrointestinal: Reports as per HPI and Reports no additional gastrointestinal complaints Musculoskeletal: Musculoskeletal: Reports no additional musculoskeletal complaints Integumentary/Breasts: Skin/Breast: Reports system reviewed and no additional complaints, except as docu and Reports as per HPI Neurologic: Reports system reviewed and no additional complaints, except as documented, Reports as per HPI and
[2021-06-13] MEDS: HALOPERIDOL LACTATE 5 MG/ML VIAL IM (20:28)
[2021-06-13] MEDS: GABAPENTIN 300 MG CAPSULE PO (20:32)
[2021-06-13] MEDS: rOPINIRole HCL 0.5 MG TABLET PO (20:32)
--- NOTE | 2021-06-13 22:00 | PC.NURSE ---
Patient agitated with bipap mask and keeps taking it off. Placed back on Nasal cannula.
[2021-06-14] VITALS (23 sets, daily range): BP systolic 131–180; BP diastolic 60–99; PULSE 60–119; RESP 18–33; TEMP 36.2–36.9; O2SAT 92–100
[2021-06-14] MEDS: methylPREDNISolone SOD SUCC 125 MG VIAL 60 MG IV PUSH ×5 (00:12→23:21)
[2021-06-14] MEDS: IPRATROPIUM BR 0.02% INH SOLN 0.5 MG/2.5 ML VIAL INHALATION ×4 (02:31→21:23)
[2021-06-14 05:37] LABS: Basophils Percent Auto 0.1 % (0.2-1.2); Hematocrit 31.9 % (42.0-52.0); Hemoglobin 9.4 g/dL (14.0-18.0); Immature Granulocyte Absolute 0.09 K/mm3 (0.00-0.031); Immature Granulocyte Percent A 0.8 % (0-0.5); Lymphocytes Absolute Auto 0.19 K/mm3 (0.9-3.2); Lymphocytes Percent Auto 1.7 % (18.3-44.2); Mean Corpuscular HGB Conc 29.5 g/dl (32-36); Mean Corpuscular Hemoglobin 27.3 pg (26-34); Mean Corpuscular Volume 92.7 fl (80-100); Mean Platelet Volume 9.8 fl (7.4-10.4); Monocytes Absolute Auto 0.2 K/mm3 (0.1-0.6); Monocytes Percent Auto 1.9 % (2.6-8.5); Neutrophils Absolute Auto 10.8 K/mm3 (1.3-6.7); Neutrophils Percent Auto 95.5 % (45.5-73.1); Nucleated Red Blood Cells Perc 0.2 % (0.0-0.2); Platelet Count Result 382 k/mm3 (150-375); Red Blood Count 3.44 M/mm3 (4.6-6.20); Red Cell Distribution Width 17.1 % (11.5-14.5); White Blood Count 11.3 K/mm3 (4.5-10.0)
[2021-06-14 05:54] LABS: Blood Urea Nitrogen 39 mg/dL (9-20); Calcium 10.1 mg/dL (8.4-10.2); Carbon Dioxide > 40 mmol/L (22-30); Chloride 96 mmol/L (98-107); Estimated CRCL calculation 33 ml/min; Estimated Glomerular Filt Rate > 60; Glucose 170 mg/dL (65-110); Potassium 5.2 mmol/L (3.4-5.0); Sodium 142 mmol/L (137-145)
--- NOTE | 2021-06-14 09:00 | PM.IMPN ---
Progress Note: A&P Assessment and Plan (1) COPD (chronic obstructive pulmonary disease): Code(s): J44.9 - Chronic obstructive pulmonary disease, unspecified Status: Chronic Assessment and Plan: Currently is not in any acute exacerbation. Patient appears to be a chronic CO2 retainer. ABG was reviewed. Continue with Solu-Medrol and DuoNebs. Patient has persistent hypercapnia despite being on a BiPAP. Continue BiPAP q.h.s. and p.r.n.. (2) Neuropathy: Code(s): G62.9 - Polyneuropathy, unspecified Status: Chronic Assessment and Plan: Continue with gabapentin. (3) Restless leg syndrome: Code(s): G25.81 - Restless legs syndrome Status: Chronic Assessment and Plan: Continue with ropinirole. Iron stores are repleted. (4) Mild acid reflux: Code(s): K21.9 - Gastro-esophageal reflux disease without esophagitis Status: Chronic Assessment and Plan: Continue with Pepcid. (5) Malnutrition: Code(s): E46 - Unspecified protein-calorie malnutrition Status: Chronic Assessment and Plan: The patient is only 54.1 kg. The patient had been on Megace. Perform a 3-day calorie count and check prealbumin levels. Continue to encourage oral intake . Provide assistance with feeding. (6) HTN (hypertension) with goal to be determined: Code(s): I10 - Essential (primary) hypertension Status: Chronic Assessment and Plan: Continue with Cardizem 240 mg PO daily. Give IV Lopressor 2.5 mg every 6 hours as needed for tachycardia more than 115. Per cardiology note these episodes of brief and tolerated. No further workup is necessary. (7) Anemia: Code(s): D64.9 - Anemia, unspecified Status: Acute Assessment and Plan: Anemia is moderate and appears to be well tolerated. Hemoglobin stable at 9.3 today Normochromic normocytic anemia. Iron stores adequate. Apparently this is chronic and he has had blood transfusions in the past according to his daughter. Continue to monitor. The patient does not have any active bleeding. (8) Atrial tachycardia: Code(s): I47.1 - Supraventricular tachycardia Status: Acute Assessment and Plan: Supraventricular tachycardia. Patient has experience self limited episodes of SVT that are asymptomatic, related to delayed dose of diltiazem. Resume this diltiazem as scheduled when mentation allows. Consideration for increasing dose of diltiazem, SVT recurs and BP permits. Per Cardiology no further workup is needed at this point. Continue to monitor electrolyte and repeat as needed. Additional Plan History of CVA with some right-sided residual continue with aspirin and Plavix. Subjective Date/time seen: 06/14/21 09:00 S: patient is examined at the bedside. He is tolerating his BiPAP. No active complaints. Review of Systems Review of Systems: All systems reviewed & are unremarkable except as noted in HPI and below ROS unobtainable: Yes unobtainable due to mental status Constitutional: Constitutional: Reports as per HPI and Reports no additional constitutional complaints Eyes: Eyes: Reports as per HPI and Reports no additional eye complaints ENT: Reports system reviewed and no additional complaints, except as documented Cardiovascular: Cardiovascular: Reports no additional cardiovascular complaints Respiratory: Respiratory: Reports no additional respiratory complaints and Reports no additional respiratory complaints Gastrointestinal: Gastrointestinal: Reports as per HPI and Reports no additional gastrointestinal complaints Musculoskeletal: Musculoskeletal: Reports no additional musculoskeletal complaints Integumentary/Breasts: Skin/Breast: Reports system reviewed and no additional complaints, except as docu and Reports as per HPI Neurologic: Reports system reviewed and no additional complaints, except as documented, Reports as per HPI and Reports confusion Psychiatric: Psy
[2021-06-14] MEDS: FAMOTIDINE 20 MG TABLET PO ×2 (09:36→20:16)
[2021-06-14] MEDS: CLOPIDOGREL BISULFATE 75 MG TABLET PO (09:36)
[2021-06-14] MEDS: MEGESTROL ACETATE (*CHEMO) ORAL SUSP 40 MG/ML SYR 400 MG PO (09:36)
[2021-06-14] MEDS: ASPIRIN 81 MG CHEWABLE TABLET PO (09:36)
[2021-06-14] MEDS: FERROUS SULFATE 324 MG TABLET PO (09:37)
[2021-06-14] MEDS: lisinopriL 5 MG TABLET PO (09:37)
--- NOTE | 2021-06-14 13:32 | PCDIET ---
Calorie Count 06/12/2021 Breakfast Scrambled eggs: 100% (98 calories) Hebrew Muffin Toasted: 100% (134 calories) Hash brown Potatoes: 100% (150 calories) Oatmeal: 20% (17 calories) Wake juice: 100% (39 calories) Milk:50% (75 calories) Coffee (8oz) : 50% (0 calories) Total calories from breakfast: 513 calories 06/12/2021 Lunch 4 unsalted crackers: 100% (52 calories) Garden vegetable Soup: 0% (o calories) Chicken salad plate: 50% (250 calories) orange Sherbert: 100% (213 calories) Chocolate Milk (low fat): 50% (157 calories) Total calories from lunch: 672 calories 06/12/2021 Dinner Macaroni:(100%) 250 calories orange juice: (50%) 20 calories Glucerna: (50%) 110 calories Milk: (100%): 150 calories Wake Sherbet: (100%) 213 calories Total Calories from dinner: 743 calories Extra Snacks: Bag of chips (160 calories) Total calories from 06.12.2021: 2088 calories 06/13/2021 Breakfast NPO: 0 calories 06/13/2021 Lunch Angelica and Bhutanese on wheat: (90%) 350 calories Tomato soup: (100%) 161 calories Unsweet tea: (0%) 0 calories Total lunch calories: 511 calories 06/13/2021 dinner mashed potatoes: (0%) 0 calories Chicken pot pie: 500 calories Unsweet Tea: (100%) 2 calories Total calories from day: 1013 calories 06/14/2021: No tickets
--- NOTE | 2021-06-14 14:14 | PCNFU ---
Nutrition Follow-Up Complete: Increased protein needs related to wound as evidenced by Stage II sacral pressure ulcer. Goal: Pt. to meet estimated nutritional needs. Continue progressing towards goal. No new goal at this time. Pt current nutrition is Heart healthy diet. Last recorded weight is 54.2 kg. Recommend re-weighing prior to discharge. Bowel Motility: + BM 06.11.2021 Labs Reviewed: Hgb 9.4, Hct 31.9, K 5.2, BUN 39, Glu 170 Meds Noted: Albuterol, Plavix, Pepcid, Ferrous Sulfate, Neurontin, Atrovent Neb, Megace, Prinivil, Lopressor, Requip Skin: stage II sacral pressure ulcer Additional Notes: Patient is consuming on average 67% of meals on current diet order. Pt. is receiving Glucerna BID providing an additional 220 calories and 9 grams of protein. Completed 2 days worth of calorie count today 06.14.2021. Documented in notes. Monitor pt. labs, medications, weight and oral intake every 5 days.
[2021-06-14 15:18] LABS: Base Excess ABG 14.8 mEq/l (+/-2.0); Fractional Inspired Oxygen 50 %; HCO3 ABG 43.7 mEq/l (22.0-26.0); Oxygen Content ABG 11.4 %vol (16.0-22.0); PO2 FiO2 Ratio Arterial Blood 0.93 %; Total Hemoglobin 10.3 g/dL (12.0-18.0); pH ABG 7.331 (7.350-7.450)
[2021-06-14 15:19] LABS: PCO2 ABG 84.5 mmHg (35.0-45.0)
[2021-06-14 15:20] LABS: Oxygen Saturation ABG 76.6 % (95.0-100.0); Oxyhemoglobin 78.3 % THb (90.0-100.0); PO2 ABG 46.4 mmHg (80.0-100.0)
[2021-06-14 15:21] LABS: Device BIPAP; Expiratory Pressure 6 cmH2O; Inspiratory Pressure 16 cmH2O; Modified Allen's Test Pass; Site Drawn RIGHT RADIAL
[2021-06-14] MEDS: HYDROcodone/acetaminophen (*CRX) 5-325 MG TABLET 1 TAB PO (16:52)
--- NOTE | 2021-06-14 16:55 | PCNSR ---
On 06/14/21, the student, Astrid Barbour, provided care and completed [facility] documentation on this patient. I have reviewed the student's documentation and agree with the findings.
[2021-06-14] MEDS: METOPROLOL TARTRATE INJ 5 MG/5 ML VIAL 2.5 MG IV PUSH (18:19)
[2021-06-14] MEDS: GABAPENTIN 300 MG CAPSULE PO (20:16)
[2021-06-14] MEDS: rOPINIRole HCL 0.5 MG TABLET PO (20:16)
[2021-06-15] VITALS (28 sets, daily range): BP systolic 111–172; BP diastolic 52–86; PULSE 58–113; RESP 16–28; TEMP 36–36.7; O2SAT 96–100
[2021-06-15] MEDS: HALOPERIDOL LACTATE 5 MG/ML VIAL IM (02:52)
[2021-06-15] MEDS: IPRATROPIUM BR 0.02% INH SOLN 0.5 MG/2.5 ML VIAL INHALATION ×4 (03:07→18:49)
[2021-06-15 06:00] LABS: Basophils Percent Auto 0.1 % (0.2-1.2); Hematocrit 30.7 % (42.0-52.0); Hemoglobin 8.8 g/dL (14.0-18.0); Immature Granulocyte Absolute 0.07 K/mm3 (0.00-0.031); Immature Granulocyte Percent A 0.7 % (0-0.5); Lymphocytes Absolute Auto 0.13 K/mm3 (0.9-3.2); Lymphocytes Percent Auto 1.4 % (18.3-44.2); Mean Corpuscular HGB Conc 28.7 g/dl (32-36); Mean Corpuscular Hemoglobin 27.2 pg (26-34); Mean Platelet Volume 9.8 fl (7.4-10.4); Monocytes Absolute Auto 0.2 K/mm3 (0.1-0.6); Monocytes Percent Auto 2.1 % (2.6-8.5); Neutrophils Absolute Auto 9.1 K/mm3 (1.3-6.7); Neutrophils Percent Auto 95.7 % (45.5-73.1); Nucleated Red Blood Cells Perc 0.2 % (0.0-0.2); Platelet Count Result 321 k/mm3 (150-375); Red Blood Count 3.23 M/mm3 (4.6-6.20); Red Cell Distribution Width 16.9 % (11.5-14.5); White Blood Count 9.5 K/mm3 (4.5-10.0)
[2021-06-15] MEDS: methylPREDNISolone SOD SUCC 125 MG VIAL 60 MG IV PUSH ×4 (06:19→23:47)
[2021-06-15 06:28] LABS: Blood Urea Nitrogen 44 mg/dL (9-20); Calcium 9.6 mg/dL (8.4-10.2); Carbon Dioxide > 40 mmol/L (22-30); Chloride 91 mmol/L (98-107); Estimated CRCL calculation 33 ml/min; Estimated Glomerular Filt Rate > 60; Glucose 213 mg/dL (65-110); Potassium 4.7 mmol/L (3.4-5.0); Sodium 136 mmol/L (137-145)
[2021-06-15 06:34] LABS: Platelet Estimate Adequate (Adequate)
[2021-06-15 06:35] LABS: Anisocytosis 1+ (NORMAL); Hypochromasia 1+ (NORMAL); Ovalocytes 1+ (NORMAL); Target Cells 1+ (NORMAL)
--- NOTE | 2021-06-15 06:57 | PM.IMPN ---
Progress Note: A&P Assessment and Plan (1) COPD (chronic obstructive pulmonary disease): Code(s): J44.9 - Chronic obstructive pulmonary disease, unspecified Status: Chronic Assessment and Plan: Currently is not in any acute exacerbation. Patient appears to be a chronic CO2 retainer. VBG was reviewed. Continue with Solu-Medrol and DuoNebs. Patient has persistent hypercapnia despite being on a BiPAP. Continue BiPAP q.h.s. and p.r.n.. (2) Neuropathy: Code(s): G62.9 - Polyneuropathy, unspecified Status: Chronic Assessment and Plan: Continue with gabapentin. (3) Restless leg syndrome: Code(s): G25.81 - Restless legs syndrome Status: Chronic Assessment and Plan: Continue with ropinirole. Iron stores are repleted. (4) Mild acid reflux: Code(s): K21.9 - Gastro-esophageal reflux disease without esophagitis Status: Chronic Assessment and Plan: Continue with Pepcid. (5) Malnutrition: Code(s): E46 - Unspecified protein-calorie malnutrition Status: Chronic Assessment and Plan: The patient is only 54.1 kg. The patient had been on Megace. Perform a 3-day calorie count and check prealbumin levels. Continue to encourage oral intake . Provide assistance with feeding. (6) HTN (hypertension) with goal to be determined: Code(s): I10 - Essential (primary) hypertension Status: Chronic Assessment and Plan: Continue with Cardizem 240 mg PO daily. Give IV Lopressor 2.5 mg every 6 hours as needed for tachycardia more than 115. Per cardiology note these episodes of brief and tolerated. No further workup is necessary. (7) Anemia: Code(s): D64.9 - Anemia, unspecified Status: Acute Assessment and Plan: Anemia is moderate and appears to be well tolerated. Hemoglobin stable at 8.8 today Normochromic normocytic anemia. Iron stores adequate. Apparently this is chronic and he has had blood transfusions in the past according to his daughter. Continue to monitor. The patient does not have any active bleeding. (8) Atrial tachycardia: Code(s): I47.1 - Supraventricular tachycardia Status: Acute Assessment and Plan: Supraventricular tachycardia. Patient has experience self limited episodes of SVT that are asymptomatic, related to delayed dose of diltiazem. Resume this diltiazem as scheduled when mentation allows. Consideration for increasing dose of diltiazem, SVT recurs and BP permits. Per Cardiology no further workup is needed at this point. Continue to monitor electrolyte and repeat as needed. Additional Plan History of CVA with some right-sided residual continue with aspirin and Plavix. Subjective Date/time seen: 06/15/21 06:55 S: Patient was examined at the bedside. He is sleepy and lethargic. He tolerated the BiPAP overnight. He did not have any active complaints. He did not seem to be in any distress. Review of Systems Review of Systems: ROS unobtainable: Yes unobtainable due to medical condition Exam Const: General: cooperative, no acute distress and confusion Nutritional Appearance: malnourished Orientation/consciousness: confusion Limitations: altered mental status HENMT: Head: normal to inspection, No palpable skull fracture present and normocephalic Ears: hearing grossly normal bilaterally and external ears normal General nose exam: Normal external nose present Mouth: Yes Normal oral and palatal mucosa present Throat: posterior oropharynx normal Eyes: General: appearance normal, both eyes and all related structures Alignment and Position: alignment normal Periorbital: periorbital findings normal Eyelids: eyelids normal Conjunctivae: conjunctivae normal Sclera: sclerae normal Cornea: corneas normal Pupils: Equal, round and reactive pupils present and Pupil accommodation reflex normal EOM: EOMs intact bilaterally Neck: Neck: normal visual inspection Thyroid: thyroid no
[2021-06-15] MEDS: FAMOTIDINE 20 MG TABLET PO ×2 (09:27→20:07)
[2021-06-15] MEDS: MEGESTROL ACETATE (*CHEMO) ORAL SUSP 40 MG/ML SYR 400 MG PO (09:27)
[2021-06-15] MEDS: FERROUS SULFATE 324 MG TABLET PO (09:27)
[2021-06-15] MEDS: CLOPIDOGREL BISULFATE 75 MG TABLET PO (09:27)
[2021-06-15] MEDS: lisinopriL 5 MG TABLET PO (09:27)
[2021-06-15] MEDS: ASPIRIN 81 MG CHEWABLE TABLET PO (09:27)
[2021-06-15] MEDS: GABAPENTIN 300 MG CAPSULE PO (20:07)
[2021-06-15] MEDS: rOPINIRole HCL 0.5 MG TABLET PO (20:07)
[2021-06-15] MEDS: QUEtiapine FUMARATE 25 MG TABLET 75 MG PO (21:14)
[2021-06-16] VITALS (29 sets, daily range): BP systolic 132–147; BP diastolic 52–86; PULSE 59–101; RESP 18–24; TEMP 35.9–38.1; O2SAT 91–100
[2021-06-16] MEDS: IPRATROPIUM BR 0.02% INH SOLN 0.5 MG/2.5 ML VIAL INHALATION ×4 (02:06→20:39)
[2021-06-16 05:04] LABS: Basophils Percent Auto 0.1 % (0.2-1.2); Hematocrit 28.7 % (42.0-52.0); Hemoglobin 8.3 g/dL (14.0-18.0); Immature Granulocyte Absolute 0.13 K/mm3 (0.00-0.031); Immature Granulocyte Percent A 1.3 % (0-0.5); Lymphocytes Absolute Auto 0.12 K/mm3 (0.9-3.2); Lymphocytes Percent Auto 1.2 % (18.3-44.2); Mean Corpuscular HGB Conc 28.9 g/dl (32-36); Mean Corpuscular Hemoglobin 26.6 pg (26-34); Mean Platelet Volume 9.7 fl (7.4-10.4); Monocytes Absolute Auto 0.3 K/mm3 (0.1-0.6); Monocytes Percent Auto 2.6 % (2.6-8.5); Neutrophils Absolute Auto 9.6 K/mm3 (1.3-6.7); Neutrophils Percent Auto 94.8 % (45.5-73.1); Nucleated Red Blood Cells Perc 0.2 % (0.0-0.2); Platelet Count Result 290 k/mm3 (150-375); Red Blood Count 3.12 M/mm3 (4.6-6.20); Red Cell Distribution Width 16.9 % (11.5-14.5); White Blood Count 10.1 K/mm3 (4.5-10.0)
[2021-06-16] MEDS: methylPREDNISolone SOD SUCC 125 MG VIAL 60 MG IV PUSH ×2 (05:12→11:20)
[2021-06-16 05:25] LABS: Platelet Estimate Adequate (Adequate)
[2021-06-16 05:26] LABS: Hypochromasia 1+ (NORMAL)
[2021-06-16 05:32] LABS: Blood Urea Nitrogen 39 mg/dL (9-20); Calcium 9.4 mg/dL (8.4-10.2); Carbon Dioxide > 40 mmol/L (22-30); Chloride 92 mmol/L (98-107); Estimated CRCL calculation 36 ml/min; Estimated Glomerular Filt Rate > 60; Glucose 152 mg/dL (65-110); Potassium 4.8 mmol/L (3.4-5.0); Sodium 137 mmol/L (137-145)
--- NOTE | 2021-06-16 07:47 | PM.IMPN ---
Progress Note: A&P Assessment and Plan (1) COPD (chronic obstructive pulmonary disease): Code(s): J44.9 - Chronic obstructive pulmonary disease, unspecified Status: Chronic Assessment and Plan: Currently is not in any acute exacerbation. Patient appears to be a chronic CO2 retainer. VBG was reviewed. Continue with Solu-Medrol and DuoNebs. Patient has persistent hypercapnia despite being on a BiPAP. Continue BiPAP q.h.s. and p.r.n.. (2) Neuropathy: Code(s): G62.9 - Polyneuropathy, unspecified Status: Chronic Assessment and Plan: Continue with gabapentin. (3) Restless leg syndrome: Code(s): G25.81 - Restless legs syndrome Status: Chronic Assessment and Plan: Continue with ropinirole. Iron stores are repleted. (4) Mild acid reflux: Code(s): K21.9 - Gastro-esophageal reflux disease without esophagitis Status: Chronic Assessment and Plan: Continue with Pepcid. (5) Malnutrition: Code(s): E46 - Unspecified protein-calorie malnutrition Status: Chronic Assessment and Plan: The patient is only 54.1 kg. The patient had been on Megace. Perform a 3-day calorie count and check prealbumin levels. Continue to encourage oral intake . Provide assistance with feeding. (6) HTN (hypertension) with goal to be determined: Code(s): I10 - Essential (primary) hypertension Status: Chronic Assessment and Plan: Continue with Cardizem 240 mg PO daily. Give IV Lopressor 2.5 mg every 6 hours as needed for tachycardia more than 115. Per cardiology note these episodes of brief and tolerated. No further workup is necessary. (7) Anemia: Code(s): D64.9 - Anemia, unspecified Status: Acute Assessment and Plan: Anemia is moderate and appears to be well tolerated. Hemoglobin stable at 8.8 today Normochromic normocytic anemia. Iron stores adequate. Apparently this is chronic and he has had blood transfusions in the past according to his daughter. Continue to monitor. The patient does not have any active bleeding. (8) Atrial tachycardia: Code(s): I47.1 - Supraventricular tachycardia Status: Acute Assessment and Plan: Supraventricular tachycardia. Patient has experience self limited episodes of SVT that are asymptomatic, related to delayed dose of diltiazem. Resume this diltiazem as scheduled when mentation allows. Consideration for increasing dose of diltiazem, SVT recurs and BP permits. Per Cardiology no further workup is needed at this point. Continue to monitor electrolyte and repeat as needed. Additional Plan History of CVA with some right-sided residual continue with aspirin and Plavix. Subjective Date/time seen: 06/16/21 07:47 S: Patient is examined at the bedside. He was not communicative. He did not seem to be in any distress. Patient is lying down comfortably. He refused the BiPAP overnight. He was agitated and aggressive. Review of Systems Review of Systems: All systems reviewed & are unremarkable except as noted in HPI and below ROS unobtainable: Yes unobtainable due to medical condition and unobtainable due to mental status Constitutional: Constitutional: Reports as per HPI and Reports no additional constitutional complaints Eyes: Eyes: Reports as per HPI and Reports no additional eye complaints ENT: Reports system reviewed and no additional complaints, except as documented Cardiovascular: Cardiovascular: Reports no additional cardiovascular complaints Respiratory: Respiratory: Reports no additional respiratory complaints and Reports no additional respiratory complaints Gastrointestinal: Gastrointestinal: Reports as per HPI and Reports no additional gastrointestinal complaints Musculoskeletal: Musculoskeletal: Reports no additional musculoskeletal complaints Integumentary/Breasts: Skin/Breast: Reports system reviewed and no additional complaints, except as docu and Reports as
[2021-06-16 09:55] LABS: Alveolar/Arterial O2 Gradient 51.3 mmHg; Base Excess ABG 16.5 mEq/l (+/-2.0); Fractional Inspired Oxygen 32 %; HCO3 ABG 44.9 mEq/l (22.0-26.0); Oxygen Content ABG 13.2 %vol (16.0-22.0); Oxygen Saturation ABG 94.7 % (95.0-100.0); PO2 ABG 80.6 mmHg (80.0-100.0); PO2 FiO2 Ratio Arterial Blood 2.52 %; Total Hemoglobin 9.9 g/dL (12.0-18.0); pH ABG 7.355 (7.350-7.450)
[2021-06-16 09:57] LABS: Device NASAL CANNULA; Modified Allen's Test Pass; PCO2 ABG 82.3 mmHg (35.0-45.0); Site Drawn LEFT RADIAL
[2021-06-16] MEDS: FAMOTIDINE 20 MG TABLET PO ×2 (11:16→21:04)
[2021-06-16] MEDS: lisinopriL 5 MG TABLET PO (11:17)
[2021-06-16] MEDS: FERROUS SULFATE 324 MG TABLET PO (11:17)
[2021-06-16] MEDS: ASPIRIN 81 MG CHEWABLE TABLET PO (11:17)
[2021-06-16] MEDS: CLOPIDOGREL BISULFATE 75 MG TABLET PO (11:18)
[2021-06-16] MEDS: MEGESTROL ACETATE (*CHEMO) ORAL SUSP 40 MG/ML SYR 400 MG PO (11:19)
--- NOTE | 2021-06-16 11:20 | PCOTNOTE ---
Attempted to see Patient this A.M. Per RN, No therapy, he was just put back on BIPAPP, trying to get his CO2 numbers down.
[2021-06-16] MEDS: HYDROcodone/acetaminophen (*CRX) 5-325 MG TABLET 1 TAB PO ×2 (11:44→15:54)
--- NOTE | 2021-06-16 12:02 | PCPTNOTE ---
RN requested that patient not be seen for Physical Therapy today secondary to patient trying to bite and scratch people. She reports that she has patient on a Bipap and now he is now relaxed.
[2021-06-16] MEDS: HALOPERIDOL LACTATE 5 MG/ML VIAL IM ×2 (14:56→21:05)
[2021-06-16 15:42] LABS: pH ABG 7.428 (7.350-7.450)
[2021-06-16 15:43] LABS: PCO2 ABG 67.5 mmHg (35.0-45.0); PO2 ABG 55.8 mmHg (80.0-100.0)
[2021-06-16 15:44] LABS: Alveolar/Arterial O2 Gradient 78.8 mmHg; Base Excess ABG 16.7 mEq/l (+/-2.0); Device NASAL CANNULA; HCO3 ABG 43.6 mEq/l (22.0-26.0); Liters per Minute 2.5 LPM; Modified Allen's Test Pass; Oxygen Content ABG 12.4 %vol (16.0-22.0); Oxygen Saturation ABG 88.5 % (95.0-100.0); Oxyhemoglobin 88.3 % THb (90.0-100.0); PO2 FiO2 Ratio Arterial Blood 1.86 %; Site Drawn RIGHT RADIAL
--- NOTE | 2021-06-16 15:56 | PM.DS ---
DS: Admitting Diagnosis Discharge Date 06/16/2021 Admitting Diagnosis (1) COPD (chronic obstructive pulmonary disease): (2) Neuropathy: (3) Restless leg syndrome: (4) Mild acid reflux: Gastro-esophageal reflux disease without esophagitis (5) Malnutrition:- Unspecified protein-calorie malnutrition (6) Essential (primary) hypertension Continue with Cardizem. (7) Anemia: DS: Discharge Diagnosis Discharge Diagnosis (1) Essential hypertension: Code(s): I10 - Essential (primary) hypertension Status: Acute Assessment and Plan: Patient was maintained on Cardizem 240 mg PO daily. He had a brief episode of supraventricular tach tachycardia that was treated with IV Lopressor 2.5 mg every 6 hours as needed for tachycardia more than 115. The cardiology service was consulted. Per cardiology these episodes were brief and tolerated. No further workup is necessary. We continued Cardizem 240 mg p.o. daily. (2) Pulmonary hypertension: Code(s): I27.20 - Pulmonary hypertension, unspecified Status: Acute (3) Atrial tachycardia: Code(s): I47.1 - Supraventricular tachycardia Status: Acute Assessment and Plan: Supraventricular tachycardia. Patient has experience self limited episodes of SVT that are asymptomatic, related to delayed dose of diltiazem. Resume this diltiazem as scheduled when mentation allows. Consideration for increasing dose of diltiazem, SVT recurs and BP permits. Per Cardiology no further workup is needed at this point. Continue to monitor electrolyte and repeat as needed. (4) COPD (chronic obstructive pulmonary disease): Code(s): J44.9 - Chronic obstructive pulmonary disease, unspecified Status: Chronic Assessment and Plan: Currently is not in any acute exacerbation. Patient appears to be a chronic CO2 retainer. VBG was reviewed. Continue with Solu-Medrol and DuoNebs. Patient has persistent hypercapnia despite being on a BiPAP. Continue BiPAP q.h.s. and p.r.n.. (5) Malnutrition: Code(s): E46 - Unspecified protein-calorie malnutrition Status: Chronic Assessment and Plan: The patient is only 54.1 kg. The patient had been on Megace. Patient is consuming on average 67% of meals on current diet order. Pt. is receiving Glucerna BID providing an additional 220 calories and 9 grams of protein. His prealbumin levels was extremely low at 0.225. We encouraged his oral intake and provided assistance with feeding. (6) Anemia: Code(s): D64.9 - Anemia, unspecified Status: Acute Assessment and Plan: Anemia is moderate and appears to be well tolerated. Hemoglobin stable at 8.7 g today Normochromic normocytic anemia. Iron stores adequate. Apparently this is chronic and he has had blood transfusions in the past according to his daughter. Continue to monitor. The patient did not have any active bleeding.. (7) Mild acid reflux: Code(s): K21.9 - Gastro-esophageal reflux disease without esophagitis Status: Chronic Assessment and Plan: Continue with Pepcid. (8) Restless leg syndrome: Code(s): G25.81 - Restless legs syndrome Status: Chronic Assessment and Plan: Continue with ropinirole. Iron stores are repleted. (9) Neuropathy: Code(s): G62.9 - Polyneuropathy, unspecified Status: Chronic Assessment and Plan: Continue with gabapentin. (10) HTN (hypertension) with goal to be determined: Code(s): I10 - Essential (primary) hypertension Status: Chronic Assessment and Plan: Continue with Cardizem 240 mg PO daily. DS: Summary Hospital Course Reason for hospitalization: Worsening shortness of breath. Hospital Course: Please refer to admission H& P. Briefly, this is a 75-year-old male patient who is currently a resident at the rehab facility [facility]. The patient has a history of COPD as well as dementia. Th
[2021-06-16] MEDS: GABAPENTIN 300 MG CAPSULE PO (21:04)
[2021-06-16] MEDS: rOPINIRole HCL 0.5 MG TABLET PO (21:04)
[2021-06-16] MEDS: LORazepam (*CRX) 0.5 MG TABLET PO (21:05)
[2021-06-17] VITALS (27 sets, daily range): BP systolic 104–174; BP diastolic 58–108; PULSE 62–111; RESP 16–20; TEMP 36.3–37.2; O2SAT 92–100
[2021-06-17] MEDS: HALOPERIDOL LACTATE 5 MG/ML VIAL IM (02:41)
[2021-06-17 05:32] LABS: Basophils Percent Auto 0.1 % (0.2-1.2); Hematocrit 28.6 % (42.0-52.0); Hemoglobin 8.7 g/dL (14.0-18.0); Immature Granulocyte Absolute 0.22 K/mm3 (0.00-0.031); Immature Granulocyte Percent A 1.8 % (0-0.5); Lymphocytes Absolute Auto 0.23 K/mm3 (0.9-3.2); Lymphocytes Percent Auto 1.8 % (18.3-44.2); Mean Corpuscular HGB Conc 30.4 g/dl (32-36); Mean Corpuscular Hemoglobin 27.4 pg (26-34); Mean Corpuscular Volume 90.2 fl (80-100); Mean Platelet Volume 9.8 fl (7.4-10.4); Monocytes Absolute Auto 0.7 K/mm3 (0.1-0.6); Monocytes Percent Auto 5.7 % (2.6-8.5); Neutrophils Absolute Auto 11.4 K/mm3 (1.3-6.7); Neutrophils Percent Auto 90.6 % (45.5-73.1); Platelet Count Result 284 k/mm3 (150-375); Red Blood Count 3.17 M/mm3 (4.6-6.20); White Blood Count 12.5 K/mm3 (4.5-10.0)
[2021-06-17 06:00] LABS: Blood Urea Nitrogen 37 mg/dL (9-20); Calcium 9.7 mg/dL (8.4-10.2); Carbon Dioxide > 40 mmol/L (22-30); Chloride 91 mmol/L (98-107); Estimated CRCL calculation 39 ml/min; Estimated Glomerular Filt Rate > 60; Glucose 134 mg/dL (65-110); Potassium 4.6 mmol/L (3.4-5.0); Sodium 137 mmol/L (137-145)
[2021-06-17 06:28] LABS: Anisocytosis 1+ (NORMAL); Hypochromasia 1+ (NORMAL); Platelet Estimate Adequate (Adequate)
[2021-06-17] MEDS: methylPREDNISolone SOD SUCC 125 MG VIAL 60 MG IV PUSH ×2 (06:48→11:33)
[2021-06-17] MEDS: IPRATROPIUM BR 0.02% INH SOLN 0.5 MG/2.5 ML VIAL INHALATION ×3 (09:08→21:00)
--- NOTE | 2021-06-17 09:25 | PM.IMPN ---
Progress Note: A&P Assessment and Plan (1) Essential hypertension: Code(s): I10 - Essential (primary) hypertension Status: Acute Assessment and Plan: Patient was maintained on Cardizem 240 mg PO daily. He had a brief episode of supraventricular tach tachycardia that was treated with IV Lopressor 2.5 mg every 6 hours as needed for tachycardia more than 115. The cardiology service was consulted. Per cardiology these episodes were brief and tolerated. No further workup is necessary. We continued Cardizem 240 mg p.o. daily. (2) Pulmonary hypertension: Code(s): I27.20 - Pulmonary hypertension, unspecified Status: Acute (3) Atrial tachycardia: Code(s): I47.1 - Supraventricular tachycardia Status: Acute Assessment and Plan: Supraventricular tachycardia. Patient has experience self limited episodes of SVT that are asymptomatic, related to delayed dose of diltiazem. Resume this diltiazem as scheduled when mentation allows. Consideration for increasing dose of diltiazem, SVT recurs and BP permits. Per Cardiology no further workup is needed at this point. Continue to monitor electrolyte and repeat as needed. (4) COPD (chronic obstructive pulmonary disease): Code(s): J44.9 - Chronic obstructive pulmonary disease, unspecified Status: Chronic Assessment and Plan: Currently is not in any acute exacerbation. Patient appears to be a chronic CO2 retainer. VBG was reviewed. Continue with Solu-Medrol and DuoNebs. Patient has persistent hypercapnia despite being on a BiPAP. Continue BiPAP q.h.s. and p.r.n.. (5) Malnutrition: Code(s): E46 - Unspecified protein-calorie malnutrition Status: Chronic Assessment and Plan: The patient is only 54.1 kg. The patient had been on Megace. Patient is consuming on average 67% of meals on current diet order. Pt. is receiving Glucerna BID providing an additional 220 calories and 9 grams of protein. His prealbumin levels was extremely low at 0.225. We encouraged his oral intake and provided assistance with feeding. (6) Anemia: Code(s): D64.9 - Anemia, unspecified Status: Acute Assessment and Plan: Anemia is moderate and appears to be well tolerated. Hemoglobin stable at 8.7 g today Normochromic normocytic anemia. Iron stores adequate. Apparently this is chronic and he has had blood transfusions in the past according to his daughter. Continue to monitor. The patient did not have any active bleeding.. (7) Mild acid reflux: Code(s): K21.9 - Gastro-esophageal reflux disease without esophagitis Status: Chronic Assessment and Plan: Continue with Pepcid. (8) Restless leg syndrome: Code(s): G25.81 - Restless legs syndrome Status: Chronic Assessment and Plan: Continue with ropinirole. Iron stores are repleted. (9) Neuropathy: Code(s): G62.9 - Polyneuropathy, unspecified Status: Chronic Assessment and Plan: Continue with gabapentin. (10) HTN (hypertension) with goal to be determined: Code(s): I10 - Essential (primary) hypertension Status: Chronic Assessment and Plan: Continue with Cardizem 240 mg PO daily. (11) Refuses treatment: Code(s): Z53.20 - Procedure and treatment not carried out because of patient's decision for unspecified reasons Status: Acute Assessment and Plan: Patient appears to be irritable at time, refusing treatment, especially at nighttime. He is confused, severely debilitated. He was started on one-to-one observation with a sitter. We will start him on a nightly dose of Seroquel. Additional Plan History of CVA with some right-sided residual continue with aspirin and Plavix. Subjective Date/time seen: 06/17/21 09:25 S: Patient was examined at the bedside. He was combative overnight and had to be started on one-to-one observation. Psychiatry has been consulted. Patient was started on
[2021-06-17] MEDS: lisinopriL 5 MG TABLET PO (10:07)
[2021-06-17] MEDS: LORazepam (*CRX) 0.5 MG TABLET PO (10:07)
[2021-06-17] MEDS: HYDROcodone/acetaminophen (*CRX) 5-325 MG TABLET 1 TAB PO (10:07)
[2021-06-17] MEDS: MEGESTROL ACETATE (*CHEMO) ORAL SUSP 40 MG/ML SYR 400 MG PO (10:07)
[2021-06-17] MEDS: ASPIRIN 81 MG CHEWABLE TABLET PO (10:08)
[2021-06-17] MEDS: FAMOTIDINE 20 MG TABLET PO ×2 (10:08→21:20)
[2021-06-17] MEDS: FERROUS SULFATE 324 MG TABLET PO (10:08)
[2021-06-17] MEDS: CLOPIDOGREL BISULFATE 75 MG TABLET PO (10:08)
[2021-06-17] MEDS: ALBUTEROL SULFATE NEB 2.5 MG/3 ML INH INHALATION (11:38)
--- NOTE | 2021-06-17 12:10 | WPDCNPSYCH ---
HPI Data of Consult Date/Time: 06/17/21 12:10 Requesting Physician: Jarod Varela MD Primary Care Provider: Mahesh Cohen MD Consult Narrative Narrative: Diagnoses: Neurocognitive disorder (dementia), possibly of the vascular type, advanced, with behavioral features, and possible superimposed delirium from urinary tract infection Plan: Patient has received Haldol (haloperidol) 15mg in the past 24 hours which is a fairly high dose of Haldol. Haldol will be discontinued due to lack of efficacy. Seroquel (quetiapine) will be stopped in favor of Zyprexa (olanzapine) 5mg p.o. q.h.s. for agitated dementia. Zyprexa (olanzapine) 5mg p.o. or IM b.i.d. p.r.n. agitation will also be provided. Zyprexa (olanzapine) is selected over Seroquel (quetiapine) because Zyprexa is available both in an oral and injectable preparation. Additional medical evaluation in search of a biological contribution to the patient's agitated dementia will be conducted to include a urinalysis with reflex culture and sensitivity if indicated, repeat comprehensive metabolic panel, B12 level, folic acid level, vitamin-D level, hemoglobin A1c, RPR, HIV, and acute hepatitis panel. Reason for consultation: Patient is a 75-year-old gentleman whose consultation has been ordered for agitated dementia History of present illness: The patient has been resistant to BiPAP placement. He is frequently attempting to remove his BiPAP. He has been intermittently refusing medications. On the night of 06/16/2021, the patient became combative and was then started on Seroquel (quetiapine) 12.5mg q.h.s.. A 1 on 1 observation was also started for the patient. The patient's nurse reports that he does try to take it and to scratch the nurse but the nurse on duty is unaware of him trying to bite. The nurse also reports that she is unaware of him ever actually having hit anyone or scratched anyone. She states that his appetite is fair. Dietary documentation on 06/14/2021 indicates that the patient has been consuming on average 67% of meals and is also taking Glucerna twice a day. Patient id came to the hospital with malnutrition as evidence based on Sever[place] 54.1kg. The patient's nurse today indicates that he sleeps off and on. The night nurse stated that he was given Haldol 5mg during the night. In the past 24 hours he has received a total of 15mg of Haldol. The patient's nurse reports that the patient complains of being short of breath but does not keep his BiPAP mask on. If the patient escalates he will sometimes refuse medication. When re-approached later he will sometimes then take his medication but at other times he will not. The patient is able to ambulate with assistance. Nursing notes: Patient's hygiene is described as fair. He is documented to tolerate his activity ?good. ? He is described as being weak with limited range of motion. He was documented on 06/17/2021 at 4:00 a.m. to hit be incontinent of bladder with strong urine odor. His GI parameters are described as within normal limits. 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 The nurse replace the BiPAP and the patient was verbally abusive. The case packer also reported that last week a nurse said that the patient was verbally abusive loud and cursing. Physical therapy report: On 06/16/2021 the nurse requested the patient not to be seen because the patient was trying to bite and scratch. The patient was on BiPAP and became relaxed. Occupational therapy report: Occupational therapy despite reoccurring attempts have frequently not been able to evaluate and treat the patient because he needed to be placed back onto BiPAP to get his CO2 down. Patient report: The patient denies any emotional or psychological symptoms that he can spontaneously report. When prompted by the interviewer's questions and comments the patient states that his sleep is poor and it has been ever since he was involved i
[2021-06-17] MEDS: ALBUTEROL SULFATE NEB 2.5 MG/0.5 ML INH (13:19)
[2021-06-17 15:23] LABS: Add Urine Microscopic? NO; Appearance Urine Clear (Clear); Bilirubin Urine Negative (Negative); Blood Urine Negative (Negative); Color Urine Yellow (Yellow); Glucose Urine UA Negative (Negative); Ketones Urine Negative (Negative); Leukocyte Esterase Ur Negative LEU/UL (Negative); Nitrate Urine Negative (Negative); Protein Urine Negative (Negative); Specific Grav Ur 1.015 (1.001-1.035); Urobilinogen Urine Negative mg/dL (<2.0)
[2021-06-17] MEDS: OLANZapine 5 MG TABLET PO ×2 (18:33→21:20)
[2021-06-17] MEDS: ALBUTEROL SULFATE NEB 2.5 MG/0.5 ML INH INHALATION (21:00)
[2021-06-17] MEDS: rOPINIRole HCL 0.5 MG TABLET PO (21:20)
[2021-06-17] MEDS: GABAPENTIN 300 MG CAPSULE PO (21:20)
[2021-06-17] MEDS: OLANZapine 10 MG INJ VIAL 5 MG IM (22:53)
[2021-06-18] VITALS (23 sets, daily range): BP systolic 118–172; BP diastolic 51–78; PULSE 72–125; RESP 14–20; TEMP 36.4–37; O2SAT 91–100
[2021-06-18] MEDS: dilTIAZem HCl INJ 25 MG/5 ML VIAL 10 MG IV PUSH (01:10)
[2021-06-18] MEDS: OLANZapine 10 MG INJ VIAL IM (01:18)
[2021-06-18] MEDS: ALBUTEROL SULFATE NEB 2.5 MG/0.5 ML INH INHALATION ×4 (02:35→19:57)
[2021-06-18] MEDS: IPRATROPIUM BR 0.02% INH SOLN 0.5 MG/2.5 ML VIAL INHALATION ×4 (02:35→19:57)
[2021-06-18] MEDS: OLANZapine 5 MG TABLET PO ×2 (02:52→20:15)
--- NOTE | 2021-06-18 08:36 | PCOTNOTE ---
Attempted to see patient at this time for skilled OT session. Patient sleeping soundly upon entry and was unable to be aroused with call of name, ALEMAN's introduction or light touch. Patient's sitter present and reports patient had rough night and received medication to rest. Spoke with RN, she confirms and states to try to see patient again later. Will trial second attempt later. Continue per OT POC.
--- NOTE | 2021-06-18 09:37 | WPDPNPSYCH ---
Objective Data Vital Signs Vital Signs: Vital Signs - 24 hr 06/17/21 10:00 06/17/21 11:20 06/17/21 11:35 Temperature Pulse Rate 77 104 H 111 H Respiratory Rate 19 16 Blood Pressure Pulse Oximetry 93 06/17/21 11:40 06/17/21 11:45 06/17/21 12:00 Temperature Pulse Rate 110 H 110 H 108 H Respiratory Rate 16 16 Blood Pressure 168/82 H Pulse Oximetry 96 92 06/17/21 13:20 06/17/21 13:31 06/17/21 14:00 Temperature Pulse Rate 108 H 106 H 87 Respiratory Rate 16 16 Blood Pressure Pulse Oximetry 06/17/21 15:42 06/17/21 16:00 06/17/21 18:00 Temperature 97.4 F L Pulse Rate 109 H 106 H 96 Respiratory Rate 18 Blood Pressure 143/108 H Pulse Oximetry 98 06/17/21 20:00 06/17/21 21:00 06/17/21 22:00 Temperature 97.9 F Pulse Rate 97 101 H 96 Respiratory Rate 17 16 Blood Pressure 160/63 H Pulse Oximetry 96 06/17/21 23:22 06/18/21 00:00 06/18/21 00:18 Temperature 98.6 F Pulse Rate 99 107 H 125 H Respiratory Rate 20 18 Blood Pressure 172/74 H Pulse Oximetry 95 95 06/18/21 01:47 06/18/21 04:00 06/18/21 06:00 Temperature 97.6 F Pulse Rate 96 81 72 Respiratory Rate 20 Blood Pressure 163/68 H Pulse Oximetry 93 06/18/21 06:15 06/18/21 08:12 06/18/21 08:13 Temperature 97.7 F Pulse Rate 76 99 Respiratory Rate 16 18 Blood Pressure 152/78 H Pulse Oximetry 100 93 06/18/21 08:23 Temperature Pulse Rate 94 Respiratory Rate 20 Blood Pressure Pulse Oximetry Intake/Output Intake/Output: Intake & Output 06/15/21 06/16/21 06/17/21 06/18/21 23:59 23:59 23:59 23:59 Intake Total 1000 660 200 100 Output Total 300 150 150 Balance 700 660 50 -50 Meds/Results Medications: Active Medications Generic Name Dose Route Start Last Admin Trade Name Freq PRN Reason Stop Dose Admin Acetaminophen 650 mg 06/09/21 11:33 Acetaminophen 325 Mg Tablet PO Q4H PRN Mild Pain (1-3) or Fever Hydrocodone Bitart/Acetaminophen 1 tab 06/09/21 11:33 06/17/21 10:07 Hydrocodone/Acetaminophen (*Crx) 5-325 Mg Tablet PO 1 tab Q4H PRN Administration Pain Rated 4-6 Albuterol 2.5 mg 06/17/21 20:00 06/18/21 08:07 Albuterol Sulfate Neb 2.5 Mg/0.5 Ml Inh INHALATION 2.5 mg Q6HRT LORIN Administration Albuterol 2 puff 06/17/21 11:44 Albuterol Sulfate (*Sp) Aerosol 1 Puff INHALATION QIDRT PRN Shortness Of Breath Aspirin 81 mg 06/10/21 08:00 06/17/21 10:08 Aspirin 81 Mg Chewable Tablet PO 81 mg DAILY@0800 LORIN Administration Clopidogrel Bisulfate 75 mg 06/10/21 09:00 06/17/21 10:08 Clopidogrel Bisulfate 75 Mg Tablet PO 75 mg DAILY LORIN Administration Diltiazem HCl 240 mg 06/10/21 09:00 06/17/21 10:08 Diltiazem Hcl Cd 240 Mg Cap.Er.24h PO 240 mg DAILY LORIN Administration Famotidine 20 mg 06/09/21 21:00 06/17/21 21:20 Famotidine 20 Mg Tablet PO 20 mg Q12HR LORIN Administration Ferrous Sulfate 324 mg 06/10/21 08:00 06/17/21 10:08 Ferrous Sulfate 324 Mg Tablet PO 324 mg DAILY@0800 LORIN Administration Gabapentin 300 mg 06/09/21 21:00 06/17/21 21:20 Gabapentin 300 Mg Capsule PO 300 mg HS LORIN Administration Ipratropium [place] 0.5 mg 06/09/21 20:00 06/18/21 08:08 Ipratropium Br 0.02% Inh Soln 0.5 Mg/2.5 Ml Vial INHALATION 0.5 mg Q6HRT LORIN Administration Lisinopril 5 mg 06/10/21 09:00 06/17/21 10:07 Lisinopril 5 Mg Tablet PO 5 mg DAILY LORIN Administration Megestrol Acetate 400 mg 06/10/21 09:00 06/17/21 10:07 Megestrol Acetate (*Chemo) Oral Susp 40 Mg/Ml Syr PO 07/10/21 08:59 400 mg DAILY LORIN Administration Morphine Sulfate 4 mg 06/09/21 11:33 Morphine Sulfate (*Crx) 4 Mg/Ml Inj IV PUSH Q2H PRN Pain Rated 7-10 Olanzapine 5 mg 06/17/21 21:00 06/17/21 21:20 Olanzapine 5 Mg Tablet PO 5 mg HS LORIN Administration Olanzapine 5 mg 06/17/21 13:23 06/18/21 02:52 Olanzapine 5 Mg Tablet PO 5
[2021-06-18] MEDS: ACETAMINOPHEN 325 MG TABLET 650 MG PO (10:34)
[2021-06-18] MEDS: MEGESTROL ACETATE (*CHEMO) ORAL SUSP 40 MG/ML SYR 400 MG PO (10:34)
[2021-06-18] MEDS: lisinopriL 5 MG TABLET PO (10:34)
[2021-06-18] MEDS: FAMOTIDINE 20 MG TABLET PO ×2 (10:34→20:13)
[2021-06-18] MEDS: CLOPIDOGREL BISULFATE 75 MG TABLET PO (10:34)
[2021-06-18] MEDS: FERROUS SULFATE 324 MG TABLET PO (10:35)
[2021-06-18] MEDS: ASPIRIN 81 MG CHEWABLE TABLET PO (10:35)
--- NOTE | 2021-06-18 11:41 | PCOTNOTE ---
Attempted a second time to see patient to complete skilled OT session. Patient was sleeping sleeping soundly upon entry. RN assisted in arousing patient and stated presence of ALEMAN. Patient mumbled quietly and stated, No to participation, refusing OT session this date. Will continue per OT POC tomorrow accordingly.
--- NOTE | 2021-06-18 11:49 | PM.IMPN ---
Progress Note: A&P Assessment and Plan (1) Essential hypertension: Code(s): I10 - Essential (primary) hypertension Status: Acute Assessment and Plan: Patient was maintained on Cardizem 240 mg PO daily. He had a brief episode of supraventricular tach tachycardia that was treated with IV Lopressor 2.5 mg every 6 hours as needed for tachycardia more than 115. The cardiology service was consulted. Per cardiology these episodes were brief and tolerated. No further workup is necessary. We continued Cardizem 240 mg p.o. daily. (2) Pulmonary hypertension: Code(s): I27.20 - Pulmonary hypertension, unspecified Status: Acute (3) Atrial tachycardia: Code(s): I47.1 - Supraventricular tachycardia Status: Acute Assessment and Plan: Supraventricular tachycardia. Patient has experience self limited episodes of SVT that are asymptomatic, related to delayed dose of diltiazem. Resume this diltiazem as scheduled when mentation allows. Consideration for increasing dose of diltiazem, SVT recurs and BP permits. Per Cardiology no further workup is needed at this point. Continue to monitor electrolyte and repeat as needed. (4) COPD (chronic obstructive pulmonary disease): Code(s): J44.9 - Chronic obstructive pulmonary disease, unspecified Status: Chronic Assessment and Plan: Currently is not in any acute exacerbation. Patient appears to be a chronic CO2 retainer. VBG was reviewed. Continue with Solu-Medrol and DuoNebs. Patient has persistent hypercapnia despite being on a BiPAP. Continue BiPAP q.h.s. and p.r.n.. (5) Malnutrition: Code(s): E46 - Unspecified protein-calorie malnutrition Status: Chronic Assessment and Plan: The patient is only 54.1 kg. The patient had been on Megace. Patient is consuming on average 67% of meals on current diet order. Pt. is receiving Glucerna BID providing an additional 220 calories and 9 grams of protein. His prealbumin levels was extremely low at 0.225. We encouraged his oral intake and provided assistance with feeding. (6) Anemia: Code(s): D64.9 - Anemia, unspecified Status: Acute Assessment and Plan: Anemia is moderate and appears to be well tolerated. Hemoglobin stable at 8.7 g today Normochromic normocytic anemia. Iron stores adequate. Apparently this is chronic and he has had blood transfusions in the past according to his daughter. Continue to monitor. The patient did not have any active bleeding.. (7) Mild acid reflux: Code(s): K21.9 - Gastro-esophageal reflux disease without esophagitis Status: Chronic Assessment and Plan: Continue with Pepcid. (8) Restless leg syndrome: Code(s): G25.81 - Restless legs syndrome Status: Chronic Assessment and Plan: Continue with ropinirole. Iron stores are repleted. (9) Neuropathy: Code(s): G62.9 - Polyneuropathy, unspecified Status: Chronic Assessment and Plan: Continue with gabapentin. (10) HTN (hypertension) with goal to be determined: Code(s): I10 - Essential (primary) hypertension Status: Chronic Assessment and Plan: Continue with Cardizem 240 mg PO daily. (11) Refuses treatment: Code(s): Z53.20 - Procedure and treatment not carried out because of patient's decision for unspecified reasons Status: Acute Assessment and Plan: Patient appears to be irritable at time, refusing treatment, especially at nighttime. He is confused, severely debilitated. He was started on one-to-one observation with a sitter. We will start him on a nightly dose of Seroquel. Additional Plan History of CVA with some right-sided residual continue with aspirin and Plavix. 06/18/2021 Patient is gradually getting better. Patient still requiring BiPAP. Plan is to in increase activity as tolerated, decrease use of BiPAP. Continue current treatment, possible longterm placement. Subj
--- NOTE | 2021-06-18 12:01 | PCPTNOTE ---
The patient treatment was not able to be completed this morning on 06/18/21 due to not being able to wake him. Will plan to continue treatment per plan of care.
[2021-06-18] MEDS: OLANZapine 2.5 MG TABLET PO ×2 (12:26→20:12)
[2021-06-18] MEDS: rOPINIRole HCL 0.5 MG TABLET PO (20:11)
[2021-06-18] MEDS: GABAPENTIN 300 MG CAPSULE PO (20:11)
[2021-06-18] MEDS: HYDROcodone/acetaminophen (*CRX) 5-325 MG TABLET 1 TAB PO (20:12)
[2021-06-19] VITALS (17 sets, daily range): BP systolic 122–149; BP diastolic 50–74; PULSE 76–98; RESP 18–22; TEMP 36.2–36.5; O2SAT 93–100
[2021-06-19] MEDS: IPRATROPIUM BR 0.02% INH SOLN 0.5 MG/2.5 ML VIAL INHALATION ×2 (02:09→09:07)
[2021-06-19] MEDS: ALBUTEROL SULFATE NEB 2.5 MG/0.5 ML INH INHALATION ×2 (02:10→09:07)
[2021-06-19 06:23] LABS: Hematocrit 33.1 % (42.0-52.0); Hemoglobin 9.9 g/dL (14.0-18.0); Mean Corpuscular HGB Conc 29.9 g/dl (32-36); Mean Corpuscular Hemoglobin 28.1 pg (26-34); Platelet Count Result 195 k/mm3 (150-375); Red Blood Count 3.52 M/mm3 (4.6-6.20); White Blood Count 10.4 K/mm3 (4.5-10.0)
[2021-06-19 06:38] LABS: Alanine Aminotransferase 21 U/L (4-50); Albumin Level 2.7 g/dL (3.5-5.1); Alkaline Phosphatase 52 U/L (38-126); Aspartate Amino Transferase 26 U/L (17-59); Bilirubin,Total 0.4 mg/dL (0.2-1.3); Blood Urea Nitrogen 31 mg/dL (9-20); Calcium 9.6 mg/dL (8.4-10.2); Carbon Dioxide > 40 mmol/L (22-30); Chloride 92 mmol/L (98-107); Estimated CRCL calculation 47 ml/min; Estimated Glomerular Filt Rate > 60; Glucose 105 mg/dL (65-110); Potassium 4.2 mmol/L (3.4-5.0); Sodium 136 mmol/L (137-145)
[2021-06-19 07:08] LABS: Band Neutrophils Percent 1 % (0-6); Lymphocytes Absolute Manual 0.62 K/mm3 (1.1-4.5); Metamyelocytes Percent 3 %; Monocytes Absolute Manual 0.72 K/mm3 (0.1-0.90); Monocytes Percent Manual 7 % (3-9); Neutrophils Absolute Manual 8.73 K/mm3 (1.3-6.7); Neutrophils Percent Manual 83 % (46-73); Platelet Estimate Adequate (Adequate); Total Cells Counted 100
[2021-06-19 07:09] LABS: Atypical Lymphocytes Present
[2021-06-19 07:17] LABS: HIV 1/2 Ab P24 Ag Result Negative (Negative)
[2021-06-19 07:40] LABS: Folic Acid 7.9 ng/mL (2.76->20)
[2021-06-19 07:47] LABS: Hemoglobin A1C 5.1 % (<5.7)
[2021-06-19 08:10] LABS: Vitamin D 25 Hydroxy 32.3 ng/mL
[2021-06-19 08:11] LABS: Hepatitis B Surface Antigen Negative (Negative)
[2021-06-19 08:17] LABS: HAV RESULT Negative (Negative); Hepatitis B Core IgM Result Negative (Negative)
[2021-06-19 08:32] LABS: Hepatitis C Virus Antibody Reactive (Negative)
[2021-06-19] MEDS: HYDROcodone/acetaminophen (*CRX) 5-325 MG TABLET 1 TAB PO ×3 (09:02→17:37)
[2021-06-19] MEDS: lisinopriL 5 MG TABLET PO (09:03)
[2021-06-19] MEDS: ASPIRIN 81 MG CHEWABLE TABLET PO (09:03)
[2021-06-19] MEDS: MEGESTROL ACETATE (*CHEMO) ORAL SUSP 40 MG/ML SYR 400 MG PO (09:03)
[2021-06-19] MEDS: FAMOTIDINE 20 MG TABLET PO ×2 (09:03→21:38)
[2021-06-19] MEDS: CLOPIDOGREL BISULFATE 75 MG TABLET PO (09:04)
[2021-06-19] MEDS: FERROUS SULFATE 324 MG TABLET PO (09:04)
--- NOTE | 2021-06-19 09:10 | PCOTNOTE ---
I have reviewed the documentation provided by student, Delia NAQVI, for this patient, Andres [place], and agree with the report. Gayatri ALEMAN/Diana
--- NOTE | 2021-06-19 11:21 | PM.IMPN ---
Progress Note: A&P Assessment and Plan (1) Respiratory failure: Code(s): J96.90 - Respiratory failure, unspecified, unspecified whether with hypoxia or hypercapnia Status: Acute Assessment and Plan: Patient present with acute respiratory failure requiring BiPAP. [facility] (we are calling to confirm). His ABG on admission was consistent with acute on chronic respiratory failure. With BiPAP, his pH is now normal and pCO2 in the 60-80 range. Will wean BiPAP to be used just with naps and at bedtime as patient tolerates. Clarify: Richardson takes 2-3L/min at the [facility] chronically (2) Atrial tachycardia: Code(s): I47.1 - Supraventricular tachycardia Status: Acute Assessment and Plan: Supraventricular tachycardia. Patient has experience self limited episodes of SVT that was asymptomatic related to delayed dose of diltiazem. Diltiazem was resumed. No SVT recurrence but having runs of AFib now. TSH low at 0.225 but FT4 normal. Not on thyroid medication. [id number] 5. Re-consult Cardiology. Continue Diltiazem. Add anticoagulation? (3) COPD (chronic obstructive pulmonary disease): Code(s): J44.9 - Chronic obstructive pulmonary disease, unspecified Status: Chronic Assessment and Plan: [place] with acute COPD exacerbation. He was on Solu-medrol but this has been stopped. COPD exacerbation resolved. He remains on neb treatments. ABG showing that he is a chronic CO2 retainer. VBG was reviewed. Resume incruse Ellipta and stop Atrovent. Change Albuterol to prn. 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 Delirium felt less liekly since more oriented now. Appreciated psych input. Continue Zyprexa. (5) Malnutrition: Code(s): E46 - Unspecified protein-calorie malnutrition Status: Chronic Assessment and Plan: The patient is only 54kg related to failure to thrive. He is currently on Megace that has been continued here. Patient is not eating much here. he has Glucerna BID as well. His prealbumin level was normal. Contineu to encourage oral intake and provided assistance with feeding. (6) Anemia: Code(s): D64.9 - Anemia, unspecified Status: Acute Assessment and Plan: Hgb 8.6 on admission with hx that patient has chronic anemia. Since admission, Hgb in the 8-9 range mostly and stable. No active bleeding noted. Normochromic normocytic anemia and Iron stores are adequate. B12/folate are normal. Per family, this is chronic and he has had blood transfusions in the past. Continue to monitor. (7) Essential hypertension: Code(s): I10 - Essential (primary) hypertension Status: Acute Assessment and Plan: Patient's blood pressure was reviewed on 06/19 Blood pressure better controlled. Will continue current medications. Continue with Cardizem 240 mg PO daily and lisinopril 5 mg daily. (8) Refuses treatment: Code(s): Z53.20 - Procedure and treatment not carried out because of patient's decision for unspecified reasons Status: Acute Assessment and Plan: Patient refusing BiPAP at night. Continue to try to convince patient about the benefits of BiPAP at night. (9) DVT prophylaxis: Code(s): Z29.9 - Encounter for prophylactic measures, unspecified Status: Acute Assessment and Plan: SCDs until anticoagulation can be determined (10) Restless leg syndrome: Code(s): G25.81 - Restless legs syndrome Status: Chronic Assessment and Plan: Stable.
[2021-06-19] MEDS: ALBUTEROL SULFATE (*SP) AEROSOL 1 PUFF 2 PUFF INHALATION (11:45)
--- NOTE | 2021-06-19 12:12 | PM.PNCARD ---
Progress Note: A&P Additional Plan 75-year-old man with: Paroxysmal atrial flutter with RVR symptomatic with tachycardia/palpitations when he has is arrhythmia. It appears since he had an unremarkable cardiac workup in [place] recently this is probably driven by his COPD. Primarily because he is symptomatic with palpitations with this I am going to initiate antiarrhythmic treatment with flecainide today. Will also consider systemic anticoagulation at this point he appears to be very frail gentleman that I would probably avoid anticoagulation. We will continue to follow telemetry with you as we initiate antiarrhythmic treatment with flecainide. This agent is being chosen as it should not aggravate his COPD which is the principal reason he is hospitalized Suraj Vazquez MD [facility] Subjective Date/time seen: Date of service: 06/19/21 12:12 Interval history: 75-year-old man with: Significant COPD admitted last week for COPD exacerbation still hospitalized at this time. My partner saw this gentleman last week for what was felt to be self-limited SVT and he was started on diltiazem with no further recurrences of this. Since he has been in the hospital he has had recurrences of his tachyarrhythmia which on my review appeared to be atrial flutter with 2-1 conduction and then variable conduction with subsequent conversion back to sinus rhythm. Other than the awareness of tachycardia/palpitations he does not have any other distress when he is in this arrhythmia. My partner's notes for left last week reviewed. Because of this recurrent arrhythmia I was asked to sign back on his case today. Exam Narrative: Somnolent but awakens. Appears stated age Const: General: comfortable and no acute distress HENMT: General nose exam: Normal nares present Eyes: Sclera: sclerae normal Neck: Neck: supple and no JVD Chest: Other: No reproducible chest wall pain to palpation Resp: Auscultation: diminished lung sounds Cardio: Rate: regular rate Rhythm: regular rhythm GI: Auscultation: normal bowel sounds Skin: General skin exam: normal color and no erythema Neuro: Cranial nerves: Yes Normal hearing present Speech: normal speech Extrem: General: no edema Psych: Affect: normal affect Objective Data Vital Signs Vital Signs: Vital Signs - 24 hr 06/18/21 14:00 06/18/21 15:10 06/18/21 15:16 Temperature Pulse Rate 105 H 83 83 Respiratory Rate 20 18 Blood Pressure Pulse Oximetry 06/18/21 16:00 06/18/21 18:00 06/18/21 18:35 Temperature 36.4 C Pulse Rate 88 100 Respiratory Rate 16 Blood Pressure 134/51 L Pulse Oximetry 91 93 06/18/21 19:57 06/18/21 20:00 06/18/21 20:08 Temperature 36.8 C Pulse Rate 102 H 107 H 96 Respiratory Rate 18 20 18 Blood Pressure 136/78 Pulse Oximetry 91 06/18/21 21:52 06/18/21 23:43 06/19/21 00:00 Temperature 36.5 C Pulse Rate 86 80 78 Respiratory Rate 20 Blood Pressure 118/74 Pulse Oximetry 94 93 06/19/21 02:00 06/19/21 02:10 06/19/21 02:11 Temperature Pulse Rate 78 78 Respiratory Rate 18 Blood Pressure Pulse Oximetry 93 06/19/21 02:20 06/19/21 03:33 06/19/21 04:00 Temperature 36.4 C Pulse Rate 92 80 Respiratory Rate 18 18 Blood Pressure 122/74 Pulse Oximetry 95 96 06/19/21 06:00 06/19/21 08:00 06/19/21 09:07 Temperature 36.5 C Pulse Rate 76 87 98 Respiratory Rate 20 18 Blood Pressure 139/69 Pulse Oximetry 97 06/19/21 09:15 06/19/21 10:00 Temperature Pulse Rate 97 89 Respiratory Rate 18 Blood Pressure Pulse Oximetry Intake/Output Intake/Output: Intake & Output 06/16/21 06/17/21 06/18/21 06/19/21 23:59 23:59 23:59 23:59 Intake Total 660 200 250 240 Output Total 150 150 Balance 660 50 100 240 Meds/Results Medications: Active Medications Generic Name Dose Route Start Last Admin Trade Name Freq PRN Reason Stop Dose Admin Acetaminophen 650 mg 06/19/21 12:08
--- NOTE | 2021-06-19 12:33 | PCNFU ---
Nutrition Follow-Up Complete: Increased protein needs related to wound as evidenced by Stage II sacral pressure ulcer. Goal: Pt. to meet estimated nutritional needs. Pt progressing towards goal. No new goal at this time. Pt current nutrition is heart healthy diet with glucerna shake BID. Last recorded weight is 54.2 kg. Recommend reweighing before discharge. Bowel Motility: +BM 06/17 Labs Reviewed: Hgb 9.9, Hct 33.1, Alb 2.7, Na 136, BUN 31, Total pro 2.7 Meds Noted: cardizem cd, pepcid, ferrous sulfate, prinivil, megace, Skin: stage II sacral pressure ulcer Additional Notes: Spoke with nursing who reports that pt has not had trouble eating. Per EMR, pt consumed 75% of breakfast today (06/19). Pt is receiving Glucerna shake BID providing an additional 220kcals and 9g protein. Nursing reports plans for pt to d/c tomorrow (06/20). Monitor pt. labs, medications, weight and oral intake every 5 days.
--- NOTE | 2021-06-19 15:56 | PCOTNOTE ---
On 06/19/21, the [facility] student, [Delia Clark], provided care and completed [facility] documentation on this patient. I have reviewed the student's documentation and agree with the findings.
--- NOTE | 2021-06-19 20:00 | PC.NURSE ---
Transfered from IMU, pt belongings in hand, no resp distress noted, no complaints at this time, call light in reach.
[2021-06-19] MEDS: GABAPENTIN 300 MG CAPSULE PO (21:38)
[2021-06-19] MEDS: rOPINIRole HCL 0.5 MG TABLET PO (21:38)
[2021-06-19] MEDS: FLECAINIDE ACETATE 100 MG TABLET PO (21:38)
[2021-06-19] MEDS: OLANZapine 5 MG TABLET PO (21:39)
[2021-06-20] VITALS (12 sets, daily range): BP systolic 115–140; BP diastolic 44–53; PULSE 69–99; RESP 16–20; TEMP 36.2–36.8; O2SAT 88–100
[2021-06-20 07:00] LABS: Basophils Absolute Auto 0.1 K/mm3 (0.0-0.1); Basophils Percent Auto 0.8 % (0.2-1.2); Eosinophils Percent Auto 0.4 % (0-4.4); Hematocrit 35.2 % (42.0-52.0); Hemoglobin 9.8 g/dL (14.0-18.0); Immature Granulocyte Absolute 0.59 K/mm3 (0.00-0.031); Immature Granulocyte Percent A 5.4 % (0-0.5); Lymphocytes Absolute Auto 0.77 K/mm3 (0.9-3.2); Mean Corpuscular HGB Conc 27.8 g/dl (32-36); Mean Corpuscular Hemoglobin 27.1 pg (26-34); Mean Corpuscular Volume 97.2 fl (80-100); Mean Platelet Volume 10.7 fl (7.4-10.4); Monocytes Absolute Auto 1.4 K/mm3 (0.1-0.6); Monocytes Percent Auto 12.3 % (2.6-8.5); Neutrophils Absolute Auto 8.1 K/mm3 (1.3-6.7); Neutrophils Percent Auto 74.1 % (45.5-73.1); Platelet Count Result 172 k/mm3 (150-375); Red Blood Count 3.62 M/mm3 (4.6-6.20); Red Cell Distribution Width 18.6 % (11.5-14.5); White Blood Count 10.9 K/mm3 (4.5-10.0)
[2021-06-20 07:17] LABS: Blood Urea Nitrogen 41 mg/dL (9-20); Calcium 9.3 mg/dL (8.4-10.2); Carbon Dioxide > 40 mmol/L (22-30); Chloride 97 mmol/L (98-107); Estimated CRCL calculation 33 ml/min; Estimated Glomerular Filt Rate > 60; Glucose 104 mg/dL (65-110); Potassium 4.5 mmol/L (3.4-5.0); Sodium 143 mmol/L (137-145)
[2021-06-20 08:38] LABS: Rapid Plasma Reagin Non-Reactive (NonReactive)
--- NOTE | 2021-06-20 09:32 | ECG_ITS ---
Measurements Intervals [place] Rate: 85 P: 78 MI: 139 QRS: 85 QRSD: 89 T: 69 QT: 325 QTc: 389 Interpretive Statements SINUS RHYTHM CANNOT RULE OUT SEPTAL INFARCT, AGE INDETERMINATE BORDERLINE T WAVE ABNORMALITY- HIGH LATERAL LEADS BASELINE ARTIFACT- I, II, III, AVR, AVL, AVF, V1-V5 ABNORMAL ECG Electronically Signed On 06-20-2021 10:43:13 [employer] by Navdeep David D.O.
--- NOTE | 2021-06-20 10:00 | PCPTNOTE ---
Attempted to see patient this A.M. for PT, however patient sleeping soundly and unable to arouse to participate. PT will continue to follow per plan of care.
[2021-06-20] MEDS: lisinopriL 5 MG TABLET PO (10:49)
[2021-06-20] MEDS: FERROUS SULFATE 324 MG TABLET PO (10:49)
[2021-06-20] MEDS: ENOXAPARIN 40 MG/0.4 ML SYRINGE SUB-Q (10:49)
[2021-06-20] MEDS: ASPIRIN 81 MG CHEWABLE TABLET PO (10:49)
[2021-06-20] MEDS: CLOPIDOGREL BISULFATE 75 MG TABLET PO (10:49)
[2021-06-20] MEDS: FLECAINIDE ACETATE 100 MG TABLET PO (10:50)
[2021-06-20] MEDS: FAMOTIDINE 20 MG TABLET PO ×2 (10:50→21:17)
[2021-06-20] MEDS: MEGESTROL ACETATE (*CHEMO) ORAL SUSP 40 MG/ML SYR 400 MG PO (10:51)
--- NOTE | 2021-06-20 11:01 | PM.PNCARD ---
Progress Note: A&P Assessment and Plan (1) Atrial flutter: Code(s): I48.92 - Unspecified atrial flutter Status: Acute Assessment and Plan: Placed on flecainide yesterday and has converted to sinus rhythm at this point. EKG this morning shows QTc 389. Will reduce flecainide dose to 50mg b.i.d. due to age and weight. Will obtain EKG as an outpatient in one week to monitor QTc. He should have a BMP drawn in one week as well. Not a candidate for a/c due to frailty/high risk for falls. (2) Malnutrition: Code(s): E46 - Unspecified protein-calorie malnutrition Status: Chronic Assessment and Plan: Per primary service. Patient was previously on Megace. (3) COPD (chronic obstructive pulmonary disease): Code(s): J44.9 - Chronic obstructive pulmonary disease, unspecified Status: Chronic Assessment and Plan: Management Per hospitalist continue noninvasive positive pressure ventilation as required, bronchodilator therapy, methylprednisolone. (4) Essential hypertension: Code(s): I10 - Essential (primary) hypertension Status: Acute Assessment and Plan: Overall, fairly stable with some lability. Continue to monitor. (5) Pulmonary hypertension: Code(s): I27.20 - Pulmonary hypertension, unspecified Status: Acute Assessment and Plan: Mild in severity, most likely related to underlying lung disease. Subjective Date/time seen: 06/20/21 11:01 Interval history: Cardiology follow up for atrial flutter Date of service 06/20/2021: Was initiated on flecainide yesterday and is in sinus rhythm now. Denies any chest pain, palpitations, shortness of breath. Review of Systems Review of Systems: All systems reviewed & are unremarkable except as noted in HPI and below Exam Narrative: Somnolent but awakens to voice. Appears stated age Const: General: comfortable and no acute distress HENMT: General nose exam: Normal nares present Eyes: Sclera: sclerae normal Neck: Neck: supple and no JVD Resp: Auscultation: diminished lung sounds Cardio: Rate: regular rate Rhythm: regular rhythm GI: Auscultation: normal bowel sounds Skin: General skin exam: normal color and no erythema Neuro: Cranial nerves: Yes Normal hearing present Speech: normal speech Extrem: General: no edema Psych: Affect: normal affect Objective Data Vital Signs Vital Signs: Vital Signs - 24 hr 06/19/21 12:00 06/19/21 16:00 06/19/21 20:00 Temperature 36.2 C L 36.3 C L Pulse Rate 87 92 Respiratory Rate 22 H 18 Blood Pressure 149/64 H 133/65 Pulse Oximetry 100 100 97 06/19/21 20:20 06/19/21 21:38 06/20/21 06:00 Temperature 36.2 C L 36.2 C L Pulse Rate 87 76 69 Respiratory Rate 22 H 20 Blood Pressure 149/50 H 129/44 L Pulse Oximetry 100 100 06/20/21 10:47 06/20/21 10:50 Temperature Pulse Rate 80 Respiratory Rate Blood Pressure Pulse Oximetry 94 Intake/Output Intake/Output: Intake & Output 06/17/21 06/18/21 06/19/21 06/20/21 23:59 23:59 23:59 23:59 Intake Total 112 603 6857 0 Output Total 150 150 550 Balance 50 100 470 0 Meds/Results Medications: Active Medications Generic Name Dose Route Start Last Admin Trade Name Freq PRN Reason Stop Dose Admin Acetaminophen 650 mg 06/19/21 12:08 Acetaminophen 325 Mg Tablet PO Q4H PRN Mild Pain (1-5) Or Fever Hydrocodone Bitart/Acetaminophen 1 tab 06/19/21 12:08 06/19/21 17:37 Hydrocodone/Acetaminophen (*Crx) 5-325 Mg Tablet PO 1 tab Q4H PRN Administration Pain Rated 6-10 Albuterol 2 puff 06/17/21 11:44 06/19/21 11:45 Albuterol Sulfate (*Sp) Aerosol 1 Puff INHALATION 2 puff QIDRT PRN Administration Shortness Of Breath Aspirin 81 mg 06/10/21 08:00 06/20/21 10:49 Aspirin 81 Mg Chewable Tablet PO 81 mg DAILY@0800 LORIN Administration Clopidogrel Bisulfate 75 mg 06/10/21 09:00 06/20/21 10:49 Clopidogrel Bisul
--- NOTE | 2021-06-20 12:25 | PM.DS ---
DS: Admitting Diagnosis Discharge Date 06/20/21 Admitting Diagnosis Shortness of breath DS: Discharge Diagnosis Discharge Diagnosis (1) Respiratory failure: Code(s): J96.90 - Respiratory failure, unspecified, unspecified whether with hypoxia or hypercapnia Status: Acute Assessment and Plan: Patient present with acute respiratory failure requiring BiPAP. He is on 2-3L/min at the retirement chronically. His ABG on admission was consistent with acute on chronic respiratory failure. With BiPAP, his pH is normalized and pCO2 in the 60-80 range. We weaned BiPAP to be used just with naps and at bedtime as patient tolerates. (2) Atrial tachycardia: Code(s): I47.1 - Supraventricular tachycardia Status: Acute Assessment and Plan: Supraventricular tachycardia. Patient experienced a self limited episode of SVT that was asymptomatic related to delayed dose of diltiazem. Diltiazem was resumed. No SVT recurrence but then was having runs of AFlutter. TSH low at 0.225 but FT4 normal. Not on thyroid medication. [id number] 5. Cardiology consulted and patient was started on Flecainide. No anticoagulation recommended. (3) Atrial flutter: Code(s): I48.92 - Unspecified atrial flutter Status: Acute Assessment and Plan: As above (4) COPD (chronic obstructive pulmonary disease): Code(s): J44.9 - Chronic obstructive pulmonary disease, unspecified Status: Chronic Assessment and Plan: Patient with acute COPD exacerbation. He was on Solu-Medrol which was eventually stopped. COPD exacerbation resolved. He remained on neb treatments. ABG showing that he is a chronic CO2 retainer. VBG was reviewed. We resumed Incruse Ellipta. 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 Delirium felt less liekly since more oriented now. Appreciated psych input. Agitation treated with Zyprexa with good response. (6) Malnutrition: Code(s): E46 - Unspecified protein-calorie malnutrition Status: Chronic Assessment and Plan: The patient is only 54kg related to failure to thrive. He is currently on Megace that has been continued here. Patient is not eating much here probably related to his dementia. He was started on Glucerna BID as well. His prealbumin level was normal. (7) Anemia: Code(s): D64.9 - Anemia, unspecified Status: Acute Assessment and Plan: Hgb 8.6 on admission with hx that patient has chronic anemia. Since admission, Hgb in the 8-9 range mostly and stable. No active bleeding noted. Normochromic normocytic anemia and Iron stores are adequate. B12/folate are normal. Per family, this is chronic and he has had blood transfusions in the past. (8) Essential hypertension: Code(s): I10 - Essential (primary) hypertension Status: Acute Assessment and Plan: Patient's blood pressure was monitored closely and remained reasonably well controlled. We continued Cardizem 240 mg PO daily. (9) Refuses treatment: Code(s): Z53.20 - Procedure and treatment not carried out because of patient's decision for unspecified reasons Status: Acute Assessment and Plan: Patient refusing BiPAP at night. We tried to convince patient about the benefits of BiPAP at night. (10) Restless leg syndrome: Code(s): G25.81 - Restless legs syndrome Status: Chronic Assessment and Plan: Stable. We continued with home ropinirole. (11) Neuropathy: Code(s): G62.9 - Polyneuropathy, unspecified Sta
--- NOTE | 2021-06-20 15:50 | PCOTNOTE ---
Addendum entered by ASH Slade 06/20/21 15:52: Student Delia NAQVI Original Note: On 06/20/21, the student, [ ], provided care and completed [employer] documentation on this patient. I have reviewed the student's documentation and agree with the findings.
[2021-06-20] MEDS: GABAPENTIN 300 MG CAPSULE PO (21:16)
[2021-06-20] MEDS: OLANZapine 5 MG TABLET PO (21:17)
[2021-06-20] MEDS: rOPINIRole HCL 0.5 MG TABLET PO (21:17)
[2021-06-20] MEDS: FLECAINIDE ACETATE 50 MG TABLET PO (21:17)
[2021-06-21] VITALS (19 sets, daily range): BP systolic 110–148; BP diastolic 40–55; PULSE 65–95; RESP 16–22; TEMP 36.3–38.1; O2SAT 95–100
--- NOTE | 2021-06-21 00:08 | PC.NURSE ---
pt refusing to reapply tele leads, pt refusing to have bipap mask tightened. Pt is raising his fists and saying back up bitch , educated on the importance of both of these items being properly fit, pt remains uncooperative.
[2021-06-21 06:35] LABS: Basophils Percent Auto 0.2 % (0.2-1.2); Eosinophils Absolute Auto 0.1 K/mm3 (0-0.3); Eosinophils Percent Auto 0.9 % (0-4.4); Hematocrit 29.7 % (42.0-52.0); Hemoglobin 8.3 g/dL (14.0-18.0); Immature Granulocyte Percent A 4.7 % (0-0.5); Lymphocytes Absolute Auto 0.87 K/mm3 (0.9-3.2); Lymphocytes Percent Auto 6.8 % (18.3-44.2); Mean Corpuscular HGB Conc 27.9 g/dl (32-36); Mean Corpuscular Hemoglobin 28.1 pg (26-34); Mean Corpuscular Volume 100.7 fl (80-100); Mean Platelet Volume 11.6 fl (7.4-10.4); Monocytes Absolute Auto 1.2 K/mm3 (0.1-0.6); Monocytes Percent Auto 9.3 % (2.6-8.5); Neutrophils Percent Auto 78.1 % (45.5-73.1); Platelet Count Result 139 k/mm3 (150-375); Red Blood Count 2.95 M/mm3 (4.6-6.20); Red Cell Distribution Width 18.9 % (11.5-14.5); White Blood Count 12.8 K/mm3 (4.5-10.0)
[2021-06-21 06:57] LABS: Blood Urea Nitrogen 54 mg/dL (9-20); Calcium 8.4 mg/dL (8.4-10.2); Carbon Dioxide > 40 mmol/L (22-30); Chloride 95 mmol/L (98-107); Estimated CRCL calculation 31 ml/min; Estimated Glomerular Filt Rate 60; Glucose 92 mg/dL (65-110); Potassium 4.8 mmol/L (3.4-5.0); Sodium 138 mmol/L (137-145)
[2021-06-21 07:48] LABS: Platelet Estimate Adequate (Adequate)
[2021-06-21 07:49] LABS: Hypochromasia 1+ (NORMAL); Poikilocytosis 1+ (NORMAL); Stomatocytes 1+ (NORMAL)
[2021-06-21 07:50] LABS: Basophilic Stippling 1+ (NORMAL)
[2021-06-21] MEDS: ENOXAPARIN 40 MG/0.4 ML SYRINGE SUB-Q (09:32)
[2021-06-21] MEDS: ASPIRIN 81 MG CHEWABLE TABLET PO (09:32)
[2021-06-21] MEDS: MEGESTROL ACETATE (*CHEMO) ORAL SUSP 40 MG/ML SYR 400 MG PO (09:33)
[2021-06-21] MEDS: FAMOTIDINE 20 MG TABLET PO ×2 (09:33→21:26)
[2021-06-21] MEDS: FLECAINIDE ACETATE 50 MG TABLET PO ×2 (09:35→21:24)
[2021-06-21] MEDS: CLOPIDOGREL BISULFATE 75 MG TABLET PO (09:36)
[2021-06-21] MEDS: FERROUS SULFATE 324 MG TABLET PO (09:36)
--- NOTE | 2021-06-21 10:08 | PM.IMPN ---
Progress Note: A&P Assessment and Plan (1) Respiratory failure: Code(s): J96.90 - Respiratory failure, unspecified, unspecified whether with hypoxia or hypercapnia Status: Acute Assessment and Plan: Patient present with acute respiratory failure requiring BiPAP. He is on 2-3L/min at the snf chronically. His ABG on admission was consistent with acute on chronic respiratory failure. With BiPAP, his pH normalized and pCO2 in the 60-80 range. We weaned BiPAP to be used just with naps and at bedtime as patient tolerates. Patient was compliant with BiPAP last night but noted to be more hypoxic this morning for unclear reasons. White count is slightly elevated from yesterday. Check chest x-ray and ABG. Xopenex neb x1 and p.r.n.. hgb 8.0 now. Repeat ABG 7.31/84/193 after BiPAP changes. Patient improved and off BiPAP. Continue to encourage BiPAP use at night and with naps. Now having low grade fever to 100.5. Atelectasis? WBC climbing so will re-culture. ST concerned about aspiration so check MBS in the [facility]. 40 minutes spent on critical care time. (2) Atrial tachycardia: Code(s): I47.1 - Supraventricular tachycardia Status: Acute Assessment and Plan: Supraventricular tachycardia. Patient experienced a self limited episode of SVT that was asymptomatic related to delayed dose of diltiazem. Diltiazem was resumed. No SVT recurrence but then was having runs of AFlutter. TSH low at 0.225 but FT4 normal. Not on thyroid medication. [id number] 5. Cardiology consulted and patient was started on Flecainide. No anticoagulation recommended. Patient maintaining normal sinus rhythm on telemetry. (3) Atrial flutter: Code(s): I48.92 - Unspecified atrial flutter Status: Acute Assessment and Plan: As above. (4) Acute kidney injury: Code(s): N17.9 - Acute kidney failure, unspecified Status: Acute Assessment and Plan: Creatinine has climbed to 1.4 today. He has been as high as 1.5 but mostly runs 1-1.3 range. Renal function not too far off his baseline. Lisinopril is been stopped. His BUN has climbed 54. This could be related to steroids but his last Solu-Medrol dose was on 06/17. He was not on prednisone after that. He may have occult GI bleed resulting in elevated BUN. Will stop Lovenox. Monitor H&H closely. (5) COPD (chronic obstructive pulmonary disease): Code(s): J44.9 - Chronic obstructive pulmonary disease, unspecified Status: Chronic Assessment and Plan: Patient head an acute COPD exacerbation. He was on Solu-Medrol which was eventually stopped. COPD exacerbation resolved. He remained on neb treatments. ABG showing that he is a chronic CO2 retainer. We resumed Incruse Ellipta. As above. 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 Delirium felt less liekly since more oriented now. Appreciated psych input. Agitation treated with Zyprexa with good response. (7) Malnutrition: Code(s): E46 - Unspecified protein-calorie malnutrition Status: Chronic Assessment and Plan: The patient is only 54kg related to failure to thrive. He is currently on Megace that has been continued here. Patient was not eating much here probably related to his dementia but did have a good breakfast today. He was started on Glucerna BID as well. His prealbumin level was normal. Will check bedside swallow evaluation given increasing hypoxia. (8) Anemia: Code(s): D64.9 - Anemia, unspecified Status: Acute Assessment and Plan: Hg
--- NOTE | 2021-06-21 10:10 | PC.NURSE ---
Dr. Davalos notified of pt sat 84% on 3l increased o2 to 6l sat now 90%, order for blood gas rt at bedside
[2021-06-21 10:21] LABS: Base Excess ABG 11.1 mEq/l (+/-2.0); Fractional Inspired Oxygen 36 %; HCO3 ABG 40.1 mEq/l (22.0-26.0); Oxyhemoglobin 88.5 % THb (90.0-100.0); PO2 ABG 61.6 mmHg (80.0-100.0); PO2 FiO2 Ratio Arterial Blood 1.71 %; Total Hemoglobin 9.6 g/dL (12.0-18.0)
[2021-06-21 10:24] LABS: PCO2 ABG 86.3 mmHg (35.0-45.0)
[2021-06-21 10:25] LABS: Oxygen Saturation ABG 87.2 % (95.0-100.0)
[2021-06-21 10:26] LABS: Device NASAL CANNULA; Site Drawn RIGHT BRACHIAL; pH ABG 7.285 (7.350-7.450)
[2021-06-21 12:05] LABS: Alveolar/Arterial O2 Gradient 215.2 mmHg; Base Excess ABG 13.2 mEq/l (+/-2.0); Fractional Inspired Oxygen 70 %; HCO3 ABG 41.6 mEq/l (22.0-26.0); Oxygen Content ABG 12.7 %vol (16.0-22.0); Oxygen Saturation ABG 99.1 % (95.0-100.0); Oxyhemoglobin 97.8 % THb (90.0-100.0); PO2 ABG 193.4 mmHg (80.0-100.0); PO2 FiO2 Ratio Arterial Blood 2.76 %; Total Hemoglobin 8.9 g/dL (12.0-18.0); pH ABG 7.312 (7.350-7.450)
[2021-06-21 12:07] LABS: PCO2 ABG 84.2 mmHg (35.0-45.0)
[2021-06-21 12:08] LABS: Device NON-INVASIVE VENT; Site Drawn RIGHT BRACHIAL
[2021-06-21 12:09] LABS: Non-Invasive Expiratory Pressure 6 CMH2O; Non-Invasive Inspiratory Pressure 14 CMH2O; Non-Invasive Vent Rate 20 /MIN
[2021-06-21 12:17] LABS: Hematocrit 28.3 % (42.0-52.0)
[2021-06-21 12:33] LABS: Blood Urea Nitrogen 56 mg/dL (9-20); Calcium 8.4 mg/dL (8.4-10.2); Carbon Dioxide > 40 mmol/L (22-30); Chloride 96 mmol/L (98-107); Estimated CRCL calculation 33 ml/min; Estimated Glomerular Filt Rate > 60; Glucose 108 mg/dL (65-110); Sodium 139 mmol/L (137-145)
--- NOTE | 2021-06-21 13:45 | PCPTNOTE ---
Patient sleeping and on BIPAP this afternoon. Patient would not open eyes or respond to participate in therapy this afternoon.
--- NOTE | 2021-06-21 15:31 | PCSTNOTE ---
Please refer to the Bedside Swallow Evaluation in the EMR. Please note, silent aspiration cannot be ruled out at bedside.
--- NOTE | 2021-06-21 15:35 | PC.NURSE ---
Dr Davalos notified of temp 100.5
[2021-06-21 16:45] LABS: Hepatitis C RNA, Quant PCR <15 IU/mL
[2021-06-21 17:29] LABS: Hematocrit 29.9 % (42.0-52.0); Hemoglobin 8.3 g/dL (14.0-18.0)
[2021-06-21 19:37] LABS: Add Urine Microscopic? NO; Appearance Urine Clear (Clear); Bilirubin Urine Negative (Negative); Blood Urine Negative (Negative); Color Urine Yellow (Yellow); Glucose Urine UA Negative (Negative); Ketones Urine Negative (Negative); Leukocyte Esterase Ur Negative LEU/UL (Negative); Nitrate Urine Negative (Negative); Protein Urine Negative (Negative); Specific Grav Ur 1.014 (1.001-1.035); Urobilinogen Urine Negative mg/dL (<2.0)
[2021-06-21] MEDS: OLANZapine 2.5 MG TABLET PO (21:25)
[2021-06-21] MEDS: rOPINIRole HCL 0.5 MG TABLET PO (21:26)
[2021-06-21] MEDS: OLANZapine 5 MG TABLET PO (21:26)
[2021-06-21] MEDS: GABAPENTIN 300 MG CAPSULE PO (21:26)
[2021-06-22] VITALS (25 sets, daily range): BP systolic 120–150; BP diastolic 54–74; PULSE 59–112; RESP 16–20; TEMP 36.4–36.5; O2SAT 94–100
--- NOTE | 2021-06-22 02:18 | PCRCNOTE ---
Window of time for administration has passed. See next scheduled administration.
--- NOTE | 2021-06-22 06:26 | PCRCNOTE ---
patient was combative and refused the abg; RN aware
[2021-06-22 07:29] LABS: Basophils Absolute Auto 0.1 K/mm3 (0.0-0.1); Basophils Percent Auto 0.8 % (0.2-1.2); Eosinophils Absolute Auto 0.1 K/mm3 (0-0.3); Eosinophils Percent Auto 1.2 % (0-4.4); Hematocrit 31.9 % (42.0-52.0); Hemoglobin 8.9 g/dL (14.0-18.0); Immature Granulocyte Absolute 0.42 K/mm3 (0.00-0.031); Immature Granulocyte Percent A 3.6 % (0-0.5); Immature Platelet Fraction Pct 2.6 % (0.9-11.2); Lymphocytes Absolute Auto 0.86 K/mm3 (0.9-3.2); Lymphocytes Percent Auto 7.5 % (18.3-44.2); Mean Corpuscular HGB Conc 27.9 g/dl (32-36); Mean Corpuscular Hemoglobin 28.2 pg (26-34); Mean Corpuscular Volume 100.9 fl (80-100); Mean Platelet Volume 10.7 fl (7.4-10.4); Monocytes Percent Auto 8.5 % (2.6-8.5); Neutrophils Percent Auto 78.4 % (45.5-73.1); Platelet Count Result 124 k/mm3 (150-375); Red Blood Count 3.16 M/mm3 (4.6-6.20); Red Cell Distribution Width 19.4 % (11.5-14.5); White Blood Count 11.5 K/mm3 (4.5-10.0)
[2021-06-22 07:59] LABS: Alanine Aminotransferase 25 U/L (4-50); Alkaline Phosphatase 54 U/L (38-126); Aspartate Amino Transferase 33 U/L (17-59); Bilirubin,Total 0.5 mg/dL (0.2-1.3); Blood Urea Nitrogen 44 mg/dL (9-20); CRP 2.6 mg/dL (<1.0); Calcium 8.7 mg/dL (8.4-10.2); Carbon Dioxide > 40 mmol/L (22-30); Chloride 93 mmol/L (98-107); Estimated CRCL calculation 39 ml/min; Estimated Glomerular Filt Rate > 60; Glucose 89 mg/dL (65-110); Sodium 136 mmol/L (137-145)
[2021-06-22 08:59] LABS: Poikilocytosis 1+ (NORMAL)
--- NOTE | 2021-06-22 10:07 | PM.IMPN ---
Progress Note: A&P Assessment and Plan (1) Respiratory failure: Code(s): J96.90 - Respiratory failure, unspecified, unspecified whether with hypoxia or hypercapnia Status: Acute Assessment and Plan: Patient present with acute respiratory failure requiring BiPAP. He is on 2-3L/min at the snf chronically. His ABG on admission was consistent with acute on chronic respiratory failure. With BiPAP, his pH normalized and pCO2 in the 60-80 range. We weaned BiPAP to be used just with naps and at bedtime as patient tolerates. Patient was compliant with BiPAP last night but noted to be more somnolent this morning for unclear reasons but possibly related to Zyprexa. White count is better and CXR showing no acute findings. Continue to encourage BiPAP use at night and with naps. Now having low grade fever to 100.5 probably atelectasis. Not on abx. Cultures pending. Follow up on [facility] later this morning. Acetazolamide (2) Atrial tachycardia: Code(s): I47.1 - Supraventricular tachycardia Status: Acute Assessment and Plan: Supraventricular tachycardia. Patient experienced a self limited episode of SVT that was asymptomatic related to delayed dose of diltiazem. Diltiazem was resumed. No SVT recurrence but then was having runs of AFlutter. TSH low at 0.225 but FT4 normal. Not on thyroid medication. [id number] 5. Cardiology consulted and patient was started on Flecainide. No anticoagulation recommended. Patient maintaining normal sinus rhythm on telemetry. (3) Atrial flutter: Code(s): I48.92 - Unspecified atrial flutter Status: Acute Assessment and Plan: As above. (4) Acute kidney injury: Code(s): N17.9 - Acute kidney failure, unspecified Status: Acute Assessment and Plan: Creatinine has climbed to 1.4. He has been as high as 1.5 but mostly runs 1-1.3 range. Renal function not too far off his baseline. Lisinopril was stopped. His BUN climbed 54. This could be related to steroids but his last Solu-Medrol dose was on 06/17. He was not on prednisone after that. He may have occult GI bleed resulting in elevated BUN so Lovenox stopped. However, HH stable and BUN coming down. Monitor closely. Resume lovenox. (5) COPD (chronic obstructive pulmonary disease): Code(s): J44.9 - Chronic obstructive pulmonary disease, unspecified Status: Chronic Assessment and Plan: Patient head an acute COPD exacerbation. He was on Solu-Medrol which was eventually stopped. COPD exacerbation resolved. He remains on neb treatments. Continue Incruse Ellipta as toelrated. As above. 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 Appreciated psych input. Agitation treated with Zyprexa with good response. Will cut back on the Zyprexa dose given the somnolence. (7) Malnutrition: Code(s): E46 - Unspecified protein-calorie malnutrition Status: Chronic Assessment and Plan: The patient is only 54kg related to failure to thrive. He is currently on Megace that has been continued here. Patient was not eating much here probably related to his dementia but did have a good breakfast today. He was started on Glucerna BID as well. His prealbumin level was normal. Bedside swallow evaluation was concerning so MBS ordered. Currently NPO. Follow up on results (8) Anemia: Code(s): D64.9 - Anemia, unspecified Status: Acute Assessment and Plan: Hgb 8.6 on admission with hx that patient has chronic anemia. Since admission, Hgb in the 8-9 range mostly and stable. No
[2021-06-22 10:28] LABS: Alveolar/Arterial O2 Gradient 102.7 mmHg; Base Excess ABG 17.4 mEq/l (+/-2.0); Fractional Inspired Oxygen 40 %; HCO3 ABG 47.1 mEq/l (22.0-26.0); Oxygen Content ABG 14.4 %vol (16.0-22.0); Oxyhemoglobin 93.2 % THb (90.0-100.0); PO2 ABG 75.4 mmHg (80.0-100.0); PO2 FiO2 Ratio Arterial Blood 1.88 %; Total Hemoglobin 10.9 g/dL (12.0-18.0); pH ABG 7.322 (7.350-7.450)
--- NOTE | 2021-06-22 10:30 | PCSTNOTE ---
MBS scheduled for 10 am however nursing reported patient is not awake enough at this time to participate; will try for later in the day.
[2021-06-22 10:31] LABS: Device NON-INVASIVE VENT; Modified Allen's Test Pass; Non-Invasive Vent Rate 18 /MIN; PCO2 ABG 93.1 mmHg (35.0-45.0); Site Drawn LEFT RADIAL
[2021-06-22 10:32] LABS: Non-Invasive Expiratory Pressure 6 CMH2O; Non-Invasive Inspiratory Pressure 14 CMH2O
[2021-06-22] MEDS: ENOXAPARIN 40 MG/0.4 ML SYRINGE SUB-Q (11:51)
[2021-06-22] MEDS: acetaZOLAMIDE SODIUM FOR INJ 500 MG VIAL 250 MG IV PUSH (11:51)
[2021-06-22] MEDS: FLECAINIDE ACETATE 50 MG TABLET PO (20:28)
[2021-06-22] MEDS: FAMOTIDINE 20 MG TABLET PO (20:28)
[2021-06-22] MEDS: OLANZapine 2.5 MG TABLET PO ×2 (20:28)
[2021-06-22] MEDS: GABAPENTIN 300 MG CAPSULE PO (20:28)
[2021-06-22] MEDS: rOPINIRole HCL 0.5 MG TABLET PO (20:28)
[2021-06-22] MEDS: LORazepam INJ (*CRX) 2 MG/ML VIAL 0.5 MG IV PUSH (23:54)
[2021-06-23] VITALS (18 sets, daily range): BP systolic 120–150; BP diastolic 48–71; PULSE 68–99; RESP 20–23; TEMP 36.2–36.6; O2SAT 95–100
[2021-06-23 06:50] LABS: Alveolar/Arterial O2 Gradient 72.4 mmHg; Base Excess ABG 10.8 mEq/l (+/-2.0); Fractional Inspired Oxygen 40 %; HCO3 ABG 40.3 mEq/l (22.0-26.0); Oxygen Content ABG 11.9 %vol (16.0-22.0); Oxygen Saturation ABG 96.2 % (95.0-100.0); Oxyhemoglobin 95.7 % THb (90.0-100.0); PO2 ABG 102.5 mmHg (80.0-100.0); PO2 FiO2 Ratio Arterial Blood 2.56 %; Total Hemoglobin 8.7 g/dL (12.0-18.0)
[2021-06-23 06:53] LABS: pH ABG 7.241 (7.350-7.450)
[2021-06-23 06:54] LABS: Device NON-INVASIVE VENT; Non-Invasive Inspiratory Pressure 14 CMH2O; Non-Invasive Vent Rate 18 /MIN; PCO2 ABG 95.9 mmHg (35.0-45.0); Site Drawn RIGHT BRACHIAL
[2021-06-23 06:55] LABS: Non-Invasive Expiratory Pressure 6 CMH2O
[2021-06-23 06:56] LABS: Basophils Absolute Auto 0.1 K/mm3 (0.0-0.1); Basophils Percent Auto 0.4 % (0.2-1.2); Eosinophils Absolute Auto 0.1 K/mm3 (0-0.3); Eosinophils Percent Auto 0.9 % (0-4.4); Hematocrit 32.7 % (42.0-52.0); Immature Granulocyte Absolute 0.41 K/mm3 (0.00-0.031); Immature Granulocyte Percent A 3.5 % (0-0.5); Immature Platelet Fraction Pct 2.2 % (0.9-11.2); Lymphocytes Absolute Auto 0.83 K/mm3 (0.9-3.2); Lymphocytes Percent Auto 7.2 % (18.3-44.2); Mean Corpuscular HGB Conc 27.5 g/dl (32-36); Mean Corpuscular Hemoglobin 27.2 pg (26-34); Mean Corpuscular Volume 98.8 fl (80-100); Mean Platelet Volume 10.2 fl (7.4-10.4); Monocytes Absolute Auto 1.2 K/mm3 (0.1-0.6); Monocytes Percent Auto 10.5 % (2.6-8.5); Neutrophils Percent Auto 77.5 % (45.5-73.1); Platelet Count Result 116 k/mm3 (150-375); Red Blood Count 3.31 M/mm3 (4.6-6.20); White Blood Count 11.6 K/mm3 (4.5-10.0)
[2021-06-23 08:15] LABS: Alanine Aminotransferase 24 U/L (4-50); Albumin Level 3.1 g/dL (3.5-5.1); Alkaline Phosphatase 57 U/L (38-126); Anion Gap 1 mmol/L (8-16); Aspartate Amino Transferase 29 U/L (17-59); Bilirubin,Total 0.4 mg/dL (0.2-1.3); Blood Urea Nitrogen 31 mg/dL (9-20); Carbon Dioxide 38 mmol/L (22-30); Chloride 101 mmol/L (98-107); Estimated CRCL calculation 39 ml/min; Estimated Glomerular Filt Rate > 60; Glucose 104 mg/dL (65-110); Potassium 5.1 mmol/L (3.4-5.0); Sodium 140 mmol/L (137-145)
--- NOTE | 2021-06-23 08:51 | PM.IMPN ---
Progress Note: A&P Assessment and Plan (1) Respiratory failure: Code(s): J96.90 - Respiratory failure, unspecified, unspecified whether with hypoxia or hypercapnia Status: Acute Assessment and Plan: Patient present with acute respiratory failure requiring BiPAP. He is on 2-3L/min at the long-term chronically. His ABG on admission was consistent with acute on chronic respiratory failure. With BiPAP, his pH normalized and pCO2 in the 60-80 range. We weaned BiPAP to be used just with naps and at bedtime as patient tolerates but only compliant from time to time. He was somnolent the other morning felt related to Zyprexa so dose decreased. White count is better and CXR showing no acute findings. No further fevers; felt transient elevated temp related to atelectasis. Not on abx. Cultures NGTD. Patient was compliant with BiPAP last night but noted to worsening ABG despite being on the same settings. Will stop prn Zyprexa and adjust settings to BiPAP. Continue to encourage BiPAP use at night and with naps. (2) Atrial tachycardia: Code(s): I47.1 - Supraventricular tachycardia Status: Acute Assessment and Plan: Supraventricular tachycardia developed early in his hospital course that was self limited episode of SVT that was asymptomatic related to delayed dose of diltiazem. Diltiazem was resumed. No SVT recurrence but then was having runs of AFlutter. TSH low at 0.225 but FT4 normal. Not on thyroid medication. [id number] 5. Cardiology consulted and patient was started on Flecainide. No anticoagulation recommended. Patient maintaining normal sinus rhythm on telemetry. (3) Atrial flutter: Code(s): I48.92 - Unspecified atrial flutter Status: Acute Assessment and Plan: As above. (4) Acute kidney injury: Code(s): N17.9 - Acute kidney failure, unspecified Status: Acute Assessment and Plan: Creatinine climbed to 1.4. He has been as high as 1.5 but mostly runs 1-1.3 range. Renal function back to his baseline. Lisinopril was stopped. His BUN climbed 56 but better at 31 now. This could be related to steroids but his last Solu-Medrol dose was on 06/17. He may have occult GI bleed but HH stable and BUN coming down now. Monitor closely. (5) COPD (chronic obstructive pulmonary disease): Code(s): J44.9 - Chronic obstructive pulmonary disease, unspecified Status: Chronic Assessment and Plan: Patient head an acute COPD exacerbation. He was on Solu-Medrol which was eventually stopped. COPD exacerbation resolved. He remains on neb treatments. Continue Incruse Ellipta. As above. 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 Appreciated psych input. Agitation treated with Zyprexa with good response. Continue low dose Zyprexa. (7) Malnutrition: Code(s): E46 - Unspecified protein-calorie malnutrition Status: Chronic Assessment and Plan: The patient is only 54kg related to failure to thrive. He is currently on Megace that has been continued here. Patient was not eating much here probably related to his dementia. Continue supplements. His prealbumin level was normal. Bedside swallow evaluation was concerning so MBS ordered showing that he does have concern for aspiration so diet changed to pureed with Level 2 thickened liquids. Continue speech therapy (8) Anemia: Code(s): D64.9 - Anemia, unspecified Status: Acute Assessment and Plan: Hgb 8.6 on admission with hx that patient has chronic anemia. Since admission, Hgb in the 8-9 range
[2021-06-23] MEDS: CLOPIDOGREL BISULFATE 75 MG TABLET PO (10:07)
[2021-06-23] MEDS: ASPIRIN 81 MG CHEWABLE TABLET PO (10:07)
[2021-06-23] MEDS: FERROUS SULFATE 324 MG TABLET PO (10:07)
[2021-06-23] MEDS: acetaZOLAMIDE SODIUM FOR INJ 500 MG VIAL 250 MG IV PUSH (10:08)
[2021-06-23] MEDS: ENOXAPARIN 40 MG/0.4 ML SYRINGE SUB-Q (10:08)
[2021-06-23] MEDS: FLECAINIDE ACETATE 50 MG TABLET PO ×2 (10:08→21:38)
[2021-06-23] MEDS: MEGESTROL ACETATE (*CHEMO) ORAL SUSP 40 MG/ML SYR 400 MG PO (10:09)
[2021-06-23] MEDS: FAMOTIDINE 20 MG TABLET PO ×2 (10:30→21:38)
[2021-06-23] MEDS: WATER, STERILE FOR INJECTION 10 ML VIAL XX (10:30)
--- NOTE | 2021-06-23 11:59 | PCNFU ---
Nutrition Follow-Up Complete: Increased protein needs related to wound as evidenced by Stage II sacral pressure ulcer. Goal: Pt. to meet estimated nutritional needs. Pt. to meet estimated nutritional needs. No new goal at this time. Pt current nutrition is a regular diet with pureed and thickened liquids. Last recorded weight is 54.2 kg. Recommend re-weighing pt. prior to discharge. Bowel Motility: + BM 06/23/2021 Labs Reviewed: Hgb 9.0, Hct 32.7, Alb 3.1, K 5.1, BUN 31 Meds Noted: Albuterol, Plavix, Lovenox, Pepcid, Ferrous Sulfate, Neurontin, Megace, Zyprexa, Requip Skin: Stage III sacral pressure ulcer Additional Notes: Pt. is constantly complaining about being hungry and wanting food per nursing. He had a modified barium swallow on 06/22 and is now following a pureed and thickened liquids diet order. Monitor pt. labs, medications, weight and oral intake every 5 days.
[2021-06-23 13:34] LABS: Potassium 4.9 mmol/L (3.4-5.0)
--- NOTE | 2021-06-23 14:18 | PCNSR ---
On 06/23/21, the student, Astrid Barbour, provided care and completed [facility] documentation on this patient. I have reviewed the student's documentation and agree with the findings.
[2021-06-23 16:55] LABS: Alveolar/Arterial O2 Gradient 88.2 mmHg; Fractional Inspired Oxygen 40 %; HCO3 ABG 37.7 mEq/l (22.0-26.0); Oxygen Content ABG 13.1 %vol (16.0-22.0); Oxygen Saturation ABG 96.7 % (95.0-100.0); PO2 ABG 102.8 mmHg (80.0-100.0); PO2 FiO2 Ratio Arterial Blood 2.57 %; Total Hemoglobin 9.6 g/dL (12.0-18.0)
[2021-06-23 17:03] LABS: pH ABG 7.281 (7.350-7.450)
[2021-06-23 17:04] LABS: Device BIPAP; Modified Allen's Test Unable to perform; PCO2 ABG 81.9 mmHg (35.0-45.0); Site Drawn LEFT RADIAL
[2021-06-23 17:05] LABS: Expiratory Pressure 6 cmH2O; Inspiratory Pressure 14 cmH2O
[2021-06-23 20:49] LABS: Alveolar/Arterial O2 Gradient 85.2 mmHg; Base Excess ABG 8.6 mEq/l (+/-2.0); Fractional Inspired Oxygen 40 %; HCO3 ABG 36.9 mEq/l (22.0-26.0); Oxygen Saturation ABG 97.2 % (95.0-100.0); Oxyhemoglobin 96.4 % THb (90.0-100.0); PO2 ABG 108.9 mmHg (80.0-100.0); PO2 FiO2 Ratio Arterial Blood 2.72 %; Total Hemoglobin 8.7 g/dL (12.0-18.0)
[2021-06-23 20:51] LABS: pH ABG 7.286 (7.350-7.450)
[2021-06-23 20:52] LABS: PCO2 ABG 79.2 mmHg (35.0-45.0)
[2021-06-23 20:53] LABS: Device BIPAP; Modified Allen's Test Pass; Site Drawn LEFT RADIAL
[2021-06-23 20:54] LABS: Expiratory Pressure 8 cmH2O; Inspiratory Pressure 16 cmH2O
[2021-06-23] MEDS: GABAPENTIN 300 MG CAPSULE PO (21:39)
[2021-06-23] MEDS: OLANZapine 2.5 MG TABLET PO (21:41)
[2021-06-23] MEDS: rOPINIRole HCL 0.5 MG TABLET PO (21:42)
[2021-06-23] MEDS: LORazepam INJ (*CRX) 2 MG/ML VIAL 0.5 MG IV PUSH (23:53)
[2021-06-24] VITALS (15 sets, daily range): BP systolic 117–148; BP diastolic 68–95; PULSE 76–100; RESP 20–25; TEMP 36.1–36.9; O2SAT 92–100
[2021-06-24 08:04] LABS: Hematocrit 30.9 % (42.0-52.0); Hemoglobin 8.6 g/dL (14.0-18.0); Immature Platelet Fraction Pct 3.7 % (0.9-11.2); Mean Corpuscular HGB Conc 27.8 g/dl (32-36); Mean Corpuscular Hemoglobin 28.4 pg (26-34); Platelet Count Result 110 k/mm3 (150-375); Red Blood Count 3.03 M/mm3 (4.6-6.20); Red Cell Distribution Width 19.1 % (11.5-14.5); White Blood Count 9.1 K/mm3 (4.5-10.0)
[2021-06-24 08:23] LABS: Anion Gap 3 mmol/L (8-16); Blood Urea Nitrogen 22 mg/dL (9-20); Calcium 8.9 mg/dL (8.4-10.2); Carbon Dioxide 34 mmol/L (22-30); Chloride 103 mmol/L (98-107); Estimated CRCL calculation 52 ml/min; Estimated Glomerular Filt Rate > 60; Glucose 87 mg/dL (65-110); Potassium 4.9 mmol/L (3.4-5.0); Sodium 140 mmol/L (137-145)
[2021-06-24] MEDS: FAMOTIDINE 20 MG TABLET PO ×2 (09:51→23:13)
[2021-06-24] MEDS: ENOXAPARIN 40 MG/0.4 ML SYRINGE SUB-Q (09:51)
[2021-06-24] MEDS: FLECAINIDE ACETATE 50 MG TABLET PO ×2 (09:51→23:13)
[2021-06-24] MEDS: acetaZOLAMIDE SODIUM FOR INJ 500 MG VIAL 250 MG IV PUSH (09:51)
[2021-06-24] MEDS: CLOPIDOGREL BISULFATE 75 MG TABLET PO (09:51)
[2021-06-24] MEDS: ASPIRIN 81 MG CHEWABLE TABLET PO (09:52)
[2021-06-24] MEDS: MEGESTROL ACETATE (*CHEMO) ORAL SUSP 40 MG/ML SYR 400 MG PO (09:53)
[2021-06-24] MEDS: FERROUS SULFATE 324 MG TABLET PO (09:53)
--- NOTE | 2021-06-24 12:03 | PCOTNOTE ---
Attempted OT reevaluation this date; per RN pt. is combative at this time. Will attempt again as possible.
--- NOTE | 2021-06-24 12:12 | PM.IMPN ---
Progress Note: A&P Assessment and Plan (1) Respiratory failure: Code(s): J96.90 - Respiratory failure, unspecified, unspecified whether with hypoxia or hypercapnia Status: Acute Assessment and Plan: Patient present with acute respiratory failure requiring BiPAP. He is on 2-3L/min at the longterm chronically. His ABG on admission was consistent with acute on chronic respiratory failure. With BiPAP, his pH normalized and pCO2 in the 60-80 range. We weaned BiPAP to be used just with naps and at bedtime as patient tolerates but only compliant from time to time. White count is better and CXR showing no acute findings. No further fevers; felt transient elevated temp related to atelectasis. Not on abx. BCx NGTD. Patient continues to refuse the BiPAP when he becomes more awake and alert but then it is replaced when he becomes more sonolent. Suspect this will be a continuous cycle. Spoke with family and provided an update. Spoke to the dtr about options including hospice and she was agreeable to proceed with hospice. All questions were answered. Hospice consult (2) Atrial tachycardia: Code(s): I47.1 - Supraventricular tachycardia Status: Acute Assessment and Plan: Supraventricular tachycardia developed early in his hospital course that was self limited episode of SVT that was asymptomatic related to delayed dose of diltiazem. Diltiazem was resumed. No SVT recurrence but then was having runs of AFlutter. TSH low at 0.225 but FT4 normal. Not on thyroid medication. [id number] 5. Cardiology consulted and patient was started on Flecainide. No anticoagulation recommended. Patient maintaining normal sinus rhythm on telemetry. (3) Atrial flutter: Code(s): I48.92 - Unspecified atrial flutter Status: Acute Assessment and Plan: As above. (4) Acute kidney injury: Code(s): N17.9 - Acute kidney failure, unspecified Status: Acute Assessment and Plan: Creatinine climbed to 1.4. He has been as high as 1.5 but mostly runs 1-1.3 range. Renal function back to his baseline. Lisinopril was stopped. His BUN climbed 56 but better at 22 now. Cr normal now. Elevated BUN could have been related to steroids. Monitor closely. (5) COPD (chronic obstructive pulmonary disease): Code(s): J44.9 - Chronic obstructive pulmonary disease, unspecified Status: Chronic Assessment and Plan: Patient had an acute COPD exacerbation. He was on Solu-Medrol which was eventually stopped. COPD exacerbation resolved. He remains on neb treatments. Continue Incruse Ellipta. As above. 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 Appreciated psych input. Agitation treated with Zyprexa with good response. Continue Zyprexa. Discussed with psychiatry (7) Malnutrition: Code(s): E46 - Unspecified protein-calorie malnutrition Status: Chronic Assessment and Plan: The patient is only 54kg related to failure to thrive. He is currently on Megace that has been continued here. Patient eats well when he eats but frequently skipped meals noted felt related to his dementia and mental status change. Continue supplements. His prealbumin level was normal. Bedside swallow evaluation was concerning so MBS ordered showing that he does have concern for aspiration so diet changed to pureed with Level 2 thickened liquids. Continue speech therapy (8) Anemia: Code(s): D64.9 - Anemia, unspecified Status: Acute Assessment and Plan: Hgb 8.6 on admission with hx that patient has chronic a
--- NOTE | 2021-06-24 12:28 | WPDPNPSYCH ---
Objective Data Vital Signs Vital Signs: Vital Signs - 24 hr 06/23/21 14:00 06/23/21 15:51 06/23/21 16:00 Temperature 97.2 F L Pulse Rate 75 98 71 Respiratory Rate 20 20 Blood Pressure 120/48 L Pulse Oximetry 100 06/23/21 17:22 06/23/21 20:00 06/23/21 21:38 Temperature Pulse Rate 95 68 82 Respiratory Rate 20 Blood Pressure Pulse Oximetry 96 100 06/23/21 22:00 06/23/21 22:30 06/24/21 00:00 Temperature 97.6 F Pulse Rate 82 84 Respiratory Rate 22 H 23 H Blood Pressure 150/60 H Pulse Oximetry 100 06/24/21 01:04 06/24/21 02:49 06/24/21 03:00 Temperature Pulse Rate 90 90 87 Respiratory Rate 25 H 20 20 Blood Pressure Pulse Oximetry 96 06/24/21 04:00 06/24/21 06:00 06/24/21 09:11 Temperature 97 F L Pulse Rate 81 80 94 Respiratory Rate 20 22 H Blood Pressure 148/95 H Pulse Oximetry 100 96 06/24/21 09:15 06/24/21 09:25 06/24/21 09:27 Temperature Pulse Rate 94 92 Respiratory Rate 24 H 24 H Blood Pressure Pulse Oximetry 95 06/24/21 09:51 Temperature Pulse Rate 76 Respiratory Rate Blood Pressure Pulse Oximetry Intake/Output Intake/Output: Intake & Output 06/21/21 06/22/21 06/23/21 06/24/21 23:59 23:59 23:59 23:59 Intake Total 1217 740 680 340 Output Total 600 Balance 617 740 680 340 Meds/Results Medications: Active Medications Generic Name Dose Route Start Last Admin Trade Name Freq PRN Reason Stop Dose Admin Acetaminophen 650 mg 06/19/21 12:08 Acetaminophen 325 Mg Tablet PO Q4H PRN Mild Pain (1-5) Or Fever Albuterol 2 puff 06/17/21 11:44 06/19/21 11:45 Albuterol Sulfate (*Sp) Aerosol 1 Puff INHALATION 2 puff QIDRT PRN Administration Shortness Of Breath Aspirin 81 mg 06/10/21 08:00 06/24/21 09:52 Aspirin 81 Mg Chewable Tablet PO 81 mg DAILY@0800 LORIN Administration Clopidogrel Bisulfate 75 mg 06/10/21 09:00 06/24/21 09:51 Clopidogrel Bisulfate 75 Mg Tablet PO 75 mg DAILY LORIN Administration Diltiazem HCl 240 mg 06/10/21 09:00 06/24/21 09:53 Diltiazem Hcl Cd 240 Mg Cap.Er.24h PO 240 mg DAILY LORIN Administration Enoxaparin Sodium 40 mg 06/23/21 09:00 06/24/21 09:51 Enoxaparin 40 Mg/0.4 Ml Syringe SUB-Q 40 mg DAILY LORIN Administration Famotidine 20 mg 06/09/21 21:00 06/24/21 09:51 Famotidine 20 Mg Tablet PO 20 mg Q12HR LORIN Administration Ferrous Sulfate 324 mg 06/10/21 08:00 06/24/21 09:53 Ferrous Sulfate 324 Mg Tablet PO 324 mg DAILY@0800 LORIN Administration Flecainide Acetate 50 mg 06/20/21 21:00 06/24/21 09:51 Flecainide Acetate 50 Mg Tablet PO 50 mg Q12HR LORIN Administration Gabapentin 300 mg 06/09/21 21:00 06/23/21 21:39 Gabapentin 300 Mg Capsule PO 300 mg HS LORIN Administration Levalbuterol HCl 1.25 mg 06/21/21 10:25 06/24/21 02:49 Levalbuterol Neb 1.25 Mg/0.5 Ml INHALATION 1.25 mg Q6HRT LORIN Administration Megestrol Acetate 400 mg 06/10/21 09:00 06/24/21 09:53 Megestrol Acetate (*Chemo) Oral Susp 40 Mg/Ml Syr PO 07/10/21 08:59 400 mg DAILY LORIN Administration Olanzapine 2.5 mg 06/22/21 21:00 06/23/21 21:41 Olanzapine 2.5 Mg Tablet PO 2.5 mg HS LORIN Administration Ropinirole HCl 0.5 mg 06/09/21 21:00 06/23/21 21:42 Ropinirole Hcl 0.5 Mg Tablet PO 0.5 mg HS LORIN Administration Umeclidinium [place] 1 puff 06/11/21 09:00 06/23/21 10:34 Umeclidinium [place] 62.5 Mcg Ellipta INHALATION Not Given DAILY [facility] Radiology Results: ITS Impressions Chest CTA 06/09/21 12:22 IMPRESSION: No evidence of pulmonary embolism Prominent emphysematous changes Mild bilateral pleural effusions Chest X-Ray 06/21/21 10:26 IMPRESSION: 1. Hyperinflation. 2. Small pleural effusions. Modified Barium Swallow 06/22/21 14:52 IMPRESSION: Aspiration demonstrated; Please refer to speech pathologist findings and specific feeding recomm
--- NOTE | 2021-06-24 12:51 | PCSTNOTE ---
Attempted swallow treatment. Patient refused despite encouragement. Will attempt again tomorrow.
--- NOTE | 2021-06-24 13:44 | PCPTNOTE ---
Attempted to see pt this date, attempted to wake patient, he would move LEs and nod head but then fell back to sleep. Will attempt at later date/time.
--- NOTE | 2021-06-24 13:47 | PCOTNOTE ---
Attempted reevaluation and pt. unable to fully wake up to answer questions or follow directions. Will attempt again tomorrow as able.
[2021-06-24] MEDS: OLANZapine 5 MG TABLET PO (23:13)
[2021-06-24] MEDS: rOPINIRole HCL 0.5 MG TABLET PO (23:13)
[2021-06-24] MEDS: GABAPENTIN 300 MG CAPSULE PO (23:14)
[2021-06-25] VITALS (9 sets, daily range): BP systolic 100–125; BP diastolic 44–50; PULSE 87–100; RESP 18–22; TEMP 36.4–37; O2SAT 95–100
[2021-06-25] MEDS: FLECAINIDE ACETATE 50 MG TABLET PO ×2 (09:34→20:36)
[2021-06-25] MEDS: MEGESTROL ACETATE (*CHEMO) ORAL SUSP 40 MG/ML SYR 400 MG PO (09:34)
[2021-06-25] MEDS: ENOXAPARIN 40 MG/0.4 ML SYRINGE SUB-Q (09:34)
[2021-06-25] MEDS: FERROUS SULFATE 324 MG TABLET PO (09:35)
[2021-06-25] MEDS: FAMOTIDINE 20 MG TABLET PO ×2 (09:35→20:35)
[2021-06-25] MEDS: CLOPIDOGREL BISULFATE 75 MG TABLET PO (09:35)
[2021-06-25] MEDS: ASPIRIN 81 MG CHEWABLE TABLET PO (09:35)
--- NOTE | 2021-06-25 11:21 | PM.DS ---
DS: Admitting Diagnosis Discharge Date 06/09/2021 Admitting Diagnosis Shortness of breath DS: Discharge Diagnosis Discharge Diagnosis (1) Respiratory failure: Code(s): J96.90 - Respiratory failure, unspecified, unspecified whether with hypoxia or hypercapnia Status: Acute Assessment and Plan: Patient present with acute respiratory failure requiring BiPAP. He is on 2-3L/min at the [facility] chronically. His ABG on admission was consistent with acute on chronic respiratory failure. With BiPAP, his pH normalized and pCO2 in the 60-80 range. We weaned BiPAP to be used just with naps and at bedtime as patient tolerates but only compliant from time to time. White count is better and CXR showing no acute findings. No further fevers; felt transient elevated temp related to atelectasis. Not on abx. BCx NGTD. Patient continues to refuse the BiPAP when he becomes more awake and alert but then it is replaced when he becomes more sonolent. Suspect this will be a continuous cycle. Family decided to proceed with hospice discussed with the nurse Hospice consult (2) Atrial tachycardia: Code(s): I47.1 - Supraventricular tachycardia Status: Acute Assessment and Plan: Supraventricular tachycardia developed early in his hospital course that was self limited episode of SVT that was asymptomatic related to delayed dose of diltiazem. Diltiazem was resumed. No SVT recurrence but then was having runs of AFlutter. TSH low at 0.225 but FT4 normal. Not on thyroid medication. [id number] 5. Cardiology consulted and patient was started on Flecainide. No anticoagulation recommended. . Hospice care (3) Atrial flutter: Code(s): I48.92 - Unspecified atrial flutter Status: Acute Assessment and Plan: Flecainide hospice care (4) Acute kidney injury: Code(s): N17.9 - Acute kidney failure, unspecified Status: Acute Assessment and Plan: Hospice care (5) COPD (chronic obstructive pulmonary disease): Code(s): J44.9 - Chronic obstructive pulmonary disease, unspecified Status: Chronic Assessment and Plan: Patient had an acute COPD exacerbation. He was on Solu-Medrol which was eventually stopped. COPD exacerbation resolved. Hospice care. 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 Appreciated psych input. 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 Appears to tolerate it when he is more somnolent. Hospice care (11) DVT prophylaxis: Code(s): Z29.9 - Encounter for prophylactic measures, unspecified Status: Acute Assessment and Plan: Courage ambulation (12) Restless leg syndrome: Code(s): G25.81 - Restless legs syndrome Status: Chronic Assessment and Plan: Stable. We continued with home ropinirole. (13) Neuropathy:
--- NOTE | 2021-06-25 12:54 | PCSTNOTE ---
The patient treatment was not able to be completed on this date due to the patient being unarousable despite sternal rub and verbal request. Will plan to continue treatment per plan of care.
--- NOTE | 2021-06-25 15:15 | PCOTNOTE ---
Attempted OT evaluation this date; spoke with RN whom reports pt. continues to be combative and agitated. She also reports family is discussing hospice. OT therapy will be discharged at this time as pt. is not appropriate for therapy at this time.
[2021-06-25] MEDS: GABAPENTIN 300 MG CAPSULE PO (20:35)
[2021-06-25] MEDS: OLANZapine 5 MG TABLET PO (20:35)
[2021-06-25] MEDS: rOPINIRole HCL 0.5 MG TABLET PO (20:35)
[2021-06-26 06:00] VITALS: BP 120/52; PULSE 80; RESP 18; TEMP 37; O2SAT 100
[2021-06-26 08:00] VITALS: O2SAT 100
[2021-06-26 09:28] VITALS: PULSE 80
[2021-06-26] MEDS: ASPIRIN 81 MG CHEWABLE TABLET PO (09:28)
[2021-06-26] MEDS: CLOPIDOGREL BISULFATE 75 MG TABLET PO (09:28)
[2021-06-26] MEDS: FAMOTIDINE 20 MG TABLET PO (09:28)
[2021-06-26] MEDS: FLECAINIDE ACETATE 50 MG TABLET PO (09:28)
[2021-06-26] MEDS: FERROUS SULFATE 324 MG TABLET PO (09:28)
[2021-06-26] MEDS: ENOXAPARIN 40 MG/0.4 ML SYRINGE SUB-Q (09:31)
[2021-06-26] MEDS: MEGESTROL ACETATE (*CHEMO) ORAL SUSP 40 MG/ML SYR 400 MG PO (09:31)
--- NOTE | 2021-06-26 12:27 | PM.DS ---
DS: Admitting Diagnosis Discharge Date 06/26/21 Admitting Diagnosis Shortness of breath DS: Discharge Diagnosis Discharge Diagnosis (1) Respiratory failure: Code(s): J96.90 - Respiratory failure, unspecified, unspecified whether with hypoxia or hypercapnia Status: Acute Assessment and Plan: Patient present with acute respiratory failure requiring BiPAP. [facility] His ABG on admission was consistent with acute on chronic respiratory failure. With BiPAP, his pH normalized and pCO2 in the 60-80 range. We weaned BiPAP to be used just with naps and at bedtime as patient tolerates but he was only compliant from time to time. White count is better and CXR showing no acute findings. No further fevers; felt transient elevated temp related to atelectasis. Not treated with abx. BCx NGTD. Patient continued to refuse the BiPAP when he becomes more awake and alert but then it was able to be replaced when he became more somnolent. Suspect this will be a continuous cycle. Spoke with family and provided an update. We also spoke about options including hospice and they was agreeable to proceed with hospice. Hospice was arranged with [facility] (2) Atrial tachycardia: Code(s): I47.1 - Supraventricular tachycardia Status: Acute Assessment and Plan: Supraventricular tachycardia developed early in his hospital course that was a self limited episode of SVT that was asymptomatic related to delayed dose of diltiazem. Diltiazem was resumed. No SVT recurrence but then was having runs of AFlutter. TSH low at 0.225 but FT4 normal. Not on thyroid medication. [id number] 5. Cardiology consulted and patient was started on Flecainide. No anticoagulation recommended. Patient maintained normal sinus rhythm. (3) Atrial flutter: Code(s): I48.92 - Unspecified atrial flutter Status: Acute Assessment and Plan: As above. (4) Acute kidney injury: Code(s): N17.9 - Acute kidney failure, unspecified Status: Acute Assessment and Plan: Creatinine climbed to 1.4. He has been as high as 1.5 but mostly runs 1-1.3 range. Renal function returned to baseline. Lisinopril was stopped. (5) COPD (chronic obstructive pulmonary disease): Code(s): J44.9 - Chronic obstructive pulmonary disease, unspecified Status: Chronic Assessment and Plan: Patient had an acute COPD exacerbation. He was on Solu-Medrol which was eventually stopped. COPD exacerbation resolved. 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 Appreciated psychiatry input. Agitation treated with Zyprexa with good response. Plan to continue Zyprexa. (7) Malnutrition: Code(s): E46 - Unspecified protein-calorie malnutrition Status: Chronic Assessment and Plan: The patient is only 54kg related to failure to thrive. He is currently on Megace which was continued here. Patient eats well when he eats but frequently skips meals. We continued supplements. His prealbumin level was normal. Bedside swallow evaluation was concerning so MBS ordered showing that he does have concern for aspiration so diet changed to pureed with Level 2 thickened liquids. (8) Anemia: Code(s): D64.9 - Anemia, unspecified Status: Acute Assessment and Plan: Hgb 8.6 on admission with hx that patient has chronic anemia. Since admission, Hgb in the 8-9 range mostly and stable. No active bleeding noted. Normochromic normocytic anemia and iro
[2021-06-26 12:45] LABS: EDCOVIDSCREEN Negative (Negative)
--- NOTE | 2021-06-26 13:24 | PCPTNOTE ---
PT discharge due to combative and pt refusal.
[2021-06-26 14:00] VITALS: BP 125/49; PULSE 74; RESP 16; TEMP 36.6; O2SAT 100
--- NOTE | 2021-07-03 14:44 | PC.NURSE ---
Hep C viral RNA- WNL. Dr. Susannah medina.
--- NOTE | 2021-07-05 10:12 | PM.IMPN ---
Progress Note: A&P Assessment and Plan (1) Respiratory failure: Code(s): J96.90 - Respiratory failure, unspecified, unspecified whether with hypoxia or hypercapnia Status: Acute Assessment and Plan: Patient present with acute respiratory failure requiring BiPAP. [facility]. His ABG on admission was consistent with acute on chronic respiratory failure. With BiPAP, his pH normalized and pCO2 in the 60-80 range. We weaned BiPAP to be used just with naps and at bedtime as patient tolerates but only compliant from time to time. White count is better and CXR showing no acute findings. No further fevers; felt transient elevated temp related to atelectasis. Not on abx. BCx NGTD. Patient continues to refuse the BiPAP when he becomes more awake and alert but then it is replaced when he becomes more sonolent. Suspect this will be a continuous cycle. Family decided to proceed with hospice discussed with the nurse Hospice consult (2) Atrial tachycardia: Code(s): I47.1 - Supraventricular tachycardia Status: Acute Assessment and Plan: Supraventricular tachycardia developed early in his hospital course that was self limited episode of SVT that was asymptomatic related to delayed dose of diltiazem. Diltiazem was resumed. No SVT recurrence but then was having runs of AFlutter. TSH low at 0.225 but FT4 normal. Not on thyroid medication. [id number] 5. Cardiology consulted and patient was started on Flecainide. No anticoagulation recommended. . Hospice care (3) Atrial flutter: Code(s): I48.92 - Unspecified atrial flutter Status: Acute Assessment and Plan: Flecainide hospice care (4) Acute kidney injury: Code(s): N17.9 - Acute kidney failure, unspecified Status: Acute Assessment and Plan: Hospice care (5) COPD (chronic obstructive pulmonary disease): Code(s): J44.9 - Chronic obstructive pulmonary disease, unspecified Status: Chronic Assessment and Plan: Patient had an acute COPD exacerbation. He was on Solu-Medrol which was eventually stopped. COPD exacerbation resolved. Hospice care. 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 Appreciated psych input. 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 Appears to tolerate it when he is more somnolent. Hospice care (11) DVT prophylaxis: Code(s): Z29.9 - Encounter for prophylactic measures, unspecified Status: Acute Assessment and Plan: Courage ambulation (12) Restless leg syndrome: Code(s): G25.81 - Restless legs syndrome Status: Chronic Assessment and Plan: Stable. We continued with home ropinirole. (13) Neuropathy: Code(s): G62.9 - Polyneuropathy, unspecified Status: Chronic Assessment and Plan:
== END 2021-06-26 18:10 | disposition hospice, home (50) | DRG 291 ==
LOC: ANHED 09:16 → ANHIMU 15:11 → ANH3MEDSUR 06-25 11:18 → ANH2MED 06-27 16:24 → ANH3MEDSUR 06-27 16:24 → ANHIMU 06-27 16:24
PROVIDERS: Internal Medicine; Nurse Practitioner; Psychiatry & Neurology Psychiatry; Admitting Provider Internal Medicine; Emergency Provider Emergency Medicine; PCP Pediatrics Neonatal-Perinatal Medicine; Visit Provider Internal Medicine
DX: I11.0 Hypertensive heart disease with heart failure (principal); J96.22 Acute and chronic respiratory failure with hypercapnia; J96.21 Acute and chronic respiratory failure with hypoxia; E46 Unspecified protein-calorie malnutrition; Z68.1 Body mass index [BMI] 19.9 or less, adult; J44.1 Chronic obstructive pulmonary disease with (acute) exacerbation; I47.1 Supraventricular tachycardia; F01.51 Vascular dementia, unspecified severity, with behavioral disturbance; I48.92 Unspecified atrial flutter; N17.9 Acute kidney failure, unspecified; I50.9 Heart failure, unspecified; Z99.81 Dependence on supplemental oxygen; Z79.82 Long term (current) use of aspirin; F10.20 Alcohol dependence, uncomplicated; Y90.9 Presence of alcohol in blood, level not specified; H26.9 Unspecified cataract; K21.9 Gastro-esophageal reflux disease without esophagitis; G25.81 Restless legs syndrome; G62.9 Polyneuropathy, unspecified; Z79.02 Long term (current) use of antithrombotics/antiplatelets; Z20.822 Contact with and (suspected) exposure to COVID-19; I27.20 Pulmonary hypertension, unspecified; Z53.20 Procedure and treatment not carried out because of patient's decision for unspecified reasons; D63.8 Anemia in other chronic diseases classified elsewhere; L89.152 Pressure ulcer of sacral region, stage 2; Z86.16 Personal history of COVID-19; Z87.891 Personal history of nicotine dependence
CPT/HCPCS: 36415; 36600; 71045; 71275; 80048; 80053; 80074; 80076; 81003; 82306; 82607; 82728; 82746; 82805; 83036; 83540; 83550; 83605; 83615; 83735; 83880; 84132; 84134; 84439; 84443; 84480; 84484; 85014; 85018; 85025; 85027; 85055; 85610; 85730; 86140; 86592; 86703; 87040; 87426; 87522; 92610; 92611; 93005; 94002; 94003; 94640; 96374; 96375; 97110; 97162; 97165; 97530; 97535; 99285; A9270; C9803; G0378; G0432; J1120; J1630; J1650; J1940; J2060; J2930; Q9967